=== PATIENT | male | born 1955 | race Caucasian/White ===

== ENCOUNTER 2019-05-04 10:43 | Inpatient (IN) | payer MEDICARE, OTHER ==
[~2019-05-04] VITALS: Ht 170.2 cm; Wt 67.8 kg
[2019-05-04 11:30] LABS: BASO % 1 % (0-3); EOS % 0 % (0-3); HEMATOCRIT 37.1 % (39.0-53.0); HEMOGLOBIN 12.3 g/dL (13.0-17.5); LYMPH # 1.2 x10^3/uL (1.0-4.8); LYMPH % 18 % (24-48); MEAN CORPUSCULAR HEMOGLOBIN 30 pg (25-35); MEAN CORPUSCULAR HGB CONC 33 g/dL (31-37); MEAN CORPUSCULAR VOLUME 91 fL (79-100); MONO # 0.6 x10^3/uL (0.0-1.1); MONO % 8 % (0-9); NEUT # 5.1 x10^3uL (1.8-7.7); NEUT % 73 % (31-73); PLATELET COUNT 203 x10^3/uL (140-400); RED BLOOD COUNT 4.08 x10^6/uL (4.30-5.70); RED CELL DISTRIBUTION WIDTH 15.9 % (11.5-14.5)
[2019-05-04] MEDS ORDERED: PALI234D IM (11:36)
[2019-05-04] MEDS ORDERED: UMEC62.5 IH (11:36)
[2019-05-04] MEDS ORDERED: PANT20TA58 PO (11:36)
[2019-05-04] MEDS ORDERED: ALBU2.5V8 IH (11:36)
[2019-05-04] MEDS ORDERED: SALM50DI IH (11:36)
[2019-05-04] MEDS ORDERED: LISI10TA2 PO (11:36)
[2019-05-04] MEDS ORDERED: NICO1PAT25 TD (11:36)
[2019-05-04] MEDS ORDERED: TAMS0.4C97 PO (11:36)
[2019-05-04] MEDS ORDERED: ASEN5TAB7 SL (11:36)
[2019-05-04] MEDS ORDERED: SERT50TA PO (11:36)
[2019-05-04] MEDS ORDERED: CLON0.5T PO (11:36)
[2019-05-04] MEDS ORDERED: TIZA4TAB PO (11:36)
[2019-05-04] MEDS ORDERED: FLUT9.9S NS (11:36)
[2019-05-04 11:43] LABS: ALBUMIN 2.9 g/dL (3.4-5.0); CALCIUM 8.9 mg/dL (8.5-10.1); GFR 75.5; MAGNESIUM 1.8 mg/dL (1.8-2.4); POTASSIUM 3.8 mmol/L (3.5-5.1); TOTAL BILIRUBIN 0.5 mg/dL (0.2-1.0); TOTAL PROTEIN 5.9 g/dL (6.4-8.2)
[2019-05-04 12:20] LABS: BACTERIA,URINE 0 /HPF (0-FEW); BILIRUBIN,URINE NEG (NEG); CLARITY,URINE CLOUDY; COLOR,URINE AMBER; GLUCOSE,URINE NEG (NEG); NITRITE,URINE NEG (NEG); RBC,URINE 0 /HPF (0-2); SQUAMOUS EPITHELIAL CELL,UR OCC /LPF; UROBILINOGEN,URINE 1 mg/dL (0.2 mg/dL); WBC,URINE RARE /HPF (0-4)
[2019-05-04] MEDS ORDERED: PRED-220 PO (12:24)
[2019-05-04] MEDS ORDERED: PRED20TA PO (12:24)
--- NOTE | 2019-05-04 12:26 | PHYS DOC ---
Past History Past Medical History: Bipolar, COPD, GERD, Hypertension, Hepatitis, Schizophrenia, Other Alcohol Use: None Drug Use: None Adult General Chief Complaint Chief Complaint: PSYCH EVALUATION HPI HPI 63-year-old male presents for medical clearance for psychiatric admission. The patient is feeling very depressed. He is made several statements about wanting to . He denies wanting to kill himself, just wouldn't mind if he naturally. The patient denies any medical complaints to me. Review of Systems Review of Systems Constitutional: Depressed. Denies fever or chills [] Eyes: Denies change in visual acuity, redness, or eye pain [] HENT: Denies nasal congestion or sore throat [] Respiratory: Denies cough or shortness of breath [] Cardiovascular: No additional information not addressed in HPI [] GI: Denies abdominal pain, nausea, vomiting, bloody stools or diarrhea [] : Denies dysuria or hematuria [] Musculoskeletal: Denies back pain or joint pain [] Integument: Denies rash or skin lesions [] Neurologic: Denies headache, focal weakness or sensory changes [] Endocrine: Denies polyuria or polydipsia [] All other systems were reviewed and found to be within normal limits, except as documented in this note. Allergies Allergies Allergies Coded Allergies Type Severity Reaction Last Updated Verified benztropine Allergy Unknown 05/04/19 Yes chlorpromazine Allergy Unknown 05/04/19 Yes cyclobenzaprine Allergy Unknown 05/04/19 Yes diphenhydramine Allergy Unknown 05/04/19 Yes hydroxyzine Allergy Unknown 05/04/19 Yes Physical Exam Physical Exam Constitutional: Well developed, well nourished, no acute distress, non-toxic appearance. [] HENT: Normocephalic, atraumatic, bilateral external ears normal, oropharynx moist, no oral exudates, nose normal. [] Eyes: PERRLA, EOMI, conjunctiva normal, no discharge. [] Neck: Normal range of motion, no tenderness, supple, no stridor. [] Cardiovascular:Heart rate regular rhythm, no murmur [] Lungs & Thorax: Bilateral breath sounds clear to auscultation [] Abdomen: Bowel sounds normal, soft, no tenderness, no masses, no pulsatile masses. [] Skin: Warm, dry, no erythema, no rash. [] Back: No tenderness, no CVA tenderness. [] Extremities: No tenderness, no cyanosis, no clubbing, ROM intact, no edema. [] Neurologic: Alert and oriented X 3, normal motor function, normal sensory function, no focal deficits noted. [] Psychologic: Affect flat, judgement normal, mood depressed. [] Current Patient Data Vital Signs Vital Signs Date Time Temp Pulse Resp B/P (MAP) Pulse Ox O2 Delivery O2 Flow Rate FiO2 05/04/19 11:30 75 16 102/62 (75) 99 Room Air 05/04/19 11:00 98.0 Lab Results Laboratory Tests Test 05/04/19 11:10 05/04/19 11:26 White Blood Count 7.0 x10^3/uL (4.0-11.0) Red Blood Count 4.08 x10^6/uL (4.30-5.70) L Hemoglobin 12.3 g/dL (13.0-17.5) L Hematocrit 37.1 % (39.0-53.0) L Mean Corpuscular Volume 91 fL (79-100) Mean Corpuscular Hemoglobin 30 pg (25-35) Mean Corpuscular Hemoglobin Concent 33 g/dL (31-37) Red Cell Distribution Width 15.9 % (11.5-14.5) H Platelet Count 203 x10^3/uL (140-400) Neutrophils (%) (Auto) 73 % (31-73) Lymphocytes (%) (Auto) 18 % (24-48) L Monocytes (%) (Auto) 8 % (0-9) Eosinophils (%) (Auto) 0 % (0-3) Basophils (%) (Auto) 1 % (0-3) Neutrophils # (Auto) 5.1 x10^3uL (1.8-7.7) Lymphocytes # (Auto) 1.2 x10^3/uL (1.0-4.8) Monocytes # (Auto) 0.6 x10^3/uL (0.0-1.1) Eosinophils # (Auto) 0.0 x10^3/uL (0.0-0.7) Basophils # (Auto) 0.0 x10^3/uL (0.0-0.2) Sodium Level 136 mmol/L (136-145) Potassium Level 3.8 mmol/L (3.5-5.1) Chloride Level 99 mmol/L (98-107) Carbon Dioxide Level 32 mmol/L (21-32) Anion Gap 5 (6-14) L Blood Urea Nitrogen 13 mg/dL (8-26) Creatinine 1.0 mg/dL (0.7-1.3) Estimated GFR (Cockcroft-Gault) 75.5 BUN/Creatinine Ratio 13 (6-20) Glucose Level 98 mg/dL (70-99) Calcium Level 8.9 mg/dL (8.5-10.1) Magnesium Level 1.8 mg/dL (1.8-2.4) Total Bilirubin 0.5 mg/dL (0.2-1.0) Aspartate Amino Transferase (AST) 54 U/L (15-37) H Alanine Aminotransferase (ALT) 123 U/L (16-63) H Alkaline Phosphatase 52 U/L (46-116) Total Protein 5.9 g/dL (6.4-8.2) L Albumin 2.9 g/dL (3.4-5.0) L Albumin/Globulin Ratio 1.0 (1.0-1.7) Urine Collection Type Unknown Urine Color Zofia Urine Clarity Cloudy Urine pH 6.5 Urine Specific [place] 1.015 Urine Protein Neg (NEG-TRACE) Urine Glucose (UA) Neg mg/dL (NEG) Urine Ketones (Stick) Neg mg/dL (NEG) Urine Blood Neg (NEG) Urine Nitrite Neg (NEG) Urine Bilirubin Neg (NEG) Urine Urobilinogen Dipstick 1 mg/dL (0.2 mg/dL) Urine Leukocyte Esterase Neg (NEG) Urine RBC 0 /HPF (0-2) Urine WBC Rare /HPF (0-4) Urine Squamous Epithelial Cells Occ /LPF Urine Bacteria 0 /HPF (0-FEW) Urine Mucus Mod /LPF EKG EKG Sinus rhythm, rate 78, normal axis, no ST elevations or depressions.[] Radiology/Procedures Radiology/Procedures [] Course & Med Decision Making Course & Med Decision Making Pertinent Labs and Imaging studies reviewed. (See chart for details) [] Dragon Disclaimer Dragon Disclaimer This electronic medical record was generated, in whole or in part, using a voice recognition dictation system. Departure Departure: Impression: Primary Impression: Medical clearance for psychiatric admission Disposition: ADMITTED INPATIENT Condition: STABLE Referrals: PRICE CATES MD (PCP) VIJAYA SANDERS DO May 04, 2019 12:26
[2019-05-04 13:10] VITALS: BP 127/77
--- NOTE | 2019-05-04 14:19 | EKG ---
[address] [address] Test Date: 2019-05-04 Test Time: 11:05:41 Pat Name: TRACY CEDILLO Department: Room: Gender: M [employer] Set Up Operator: MAGGIE : 1955 Requested By: VIJAYA SANDERS Order Number: [id number] Reading MD: Measurements Intervals [place] Rate: 78 P: 60 WY: 148 QRS: 51 QRSD: 74 T: 63 QT: 352 QTc: 405 Interpretive Statements SINUS RHYTHM OTHERWISE NORMAL ECG RI6.01 No previous ECG available for comparison
[2019-05-04] MEDS ORDERED: MAGNESIUM HYDROXIDE 2,400 MG/30 ML ORAL.SUSP. PO PRN (14:30)
[2019-05-04] MEDS ORDERED: MAG HYDROX/AL HYDROX/SIMETH 30 ML ORAL.SUSP PO PRN (14:30)
[2019-05-04] MEDS ORDERED: ALBUTEROL SULFATE 2.5 MG/3 ML NEBU. IH PRN (14:45)
[2019-05-04] MEDS ORDERED: NON FORMULARY ITEM (Asenapine Maleate (Saphris) 5 MG) SL PRN (15:00)
[2019-05-04] MEDS ORDERED: ALBUTEROL SULFATE 2.5 MG/3 ML NEBU. NEB PRN (15:15)
[2019-05-04] MEDS: IPRATRPIUM/ALBUTEROL 0.5/2.5MG 3 ML NEBU. NEB SCH ×2 (15:32→20:36)
[2019-05-04] MEDS: clonazePAM 0.5 MG TABLET PO PRN (16:27)
[2019-05-04] MEDS: tiZANidine 4 MG TABLET. PO PRN (20:19)
[2019-05-04] MEDS: ACETAMINOPHEN 325 MG TABLET PO PRN (20:19)
[2019-05-04] MEDS ORDERED: SALMETEROL XINAFOATE IH SCH (21:00)
--- NOTE | 2019-05-04 23:01 | PDOC ---
Exam Note: Elvis Note: Please also refer to the separate dictated note~for this date of service dictated separately. Discussed the patient with Nursing staff reviewed the chart.~Reviewed interim history and current functioning. Reviewed vital signs,~Labs/ Radiology~and current medications noted below. Continue current treatment with the changes noted in the dictated addendum note Assessment: Vital Signs/I&O: Vital Signs Date Time Temp Pulse Resp B/P (MAP) Pulse Ox O2 Delivery O2 Flow Rate FiO2 05/04/19 21:00 Room Air 05/04/19 20:37 99 05/04/19 13:10 98.2 71 16 127/77 (94) Labs: Laboratory Tests Test 05/04/19 11:10 05/04/19 11:26 White Blood Count 7.0 x10^3/uL (4.0-11.0) Red Blood Count 4.08 x10^6/uL (4.30-5.70) L Hemoglobin 12.3 g/dL (13.0-17.5) L Hematocrit 37.1 % (39.0-53.0) L Mean Corpuscular Volume 91 fL (79-100) Mean Corpuscular Hemoglobin 30 pg (25-35) Mean Corpuscular Hemoglobin Concent 33 g/dL (31-37) Red Cell Distribution Width 15.9 % (11.5-14.5) H Platelet Count 203 x10^3/uL (140-400) Neutrophils (%) (Auto) 73 % (31-73) Lymphocytes (%) (Auto) 18 % (24-48) L Monocytes (%) (Auto) 8 % (0-9) Eosinophils (%) (Auto) 0 % (0-3) Basophils (%) (Auto) 1 % (0-3) Neutrophils # (Auto) 5.1 x10^3uL (1.8-7.7) Lymphocytes # (Auto) 1.2 x10^3/uL (1.0-4.8) Monocytes # (Auto) 0.6 x10^3/uL (0.0-1.1) Eosinophils # (Auto) 0.0 x10^3/uL (0.0-0.7) Basophils # (Auto) 0.0 x10^3/uL (0.0-0.2) Sodium Level 136 mmol/L (136-145) Potassium Level 3.8 mmol/L (3.5-5.1) Chloride Level 99 mmol/L (98-107) Carbon Dioxide Level 32 mmol/L (21-32) Anion Gap 5 (6-14) L Blood Urea Nitrogen 13 mg/dL (8-26) Creatinine 1.0 mg/dL (0.7-1.3) Estimated GFR (Cockcroft-Gault) 75.5 BUN/Creatinine Ratio 13 (6-20) Glucose Level 98 mg/dL (70-99) Calcium Level 8.9 mg/dL (8.5-10.1) Magnesium Level 1.8 mg/dL (1.8-2.4) Total Bilirubin 0.5 mg/dL (0.2-1.0) Aspartate Amino Transferase (AST) 54 U/L (15-37) H Alanine Aminotransferase (ALT) 123 U/L (16-63) H Alkaline Phosphatase 52 U/L (46-116) Total Protein 5.9 g/dL (6.4-8.2) L Albumin 2.9 g/dL (3.4-5.0) L Albumin/Globulin Ratio 1.0 (1.0-1.7) Urine Collection Type Unknown Urine Color Zofia Urine Clarity Cloudy Urine pH 6.5 Urine Specific [place] 1.015 Urine Protein Neg (NEG-TRACE) Urine Glucose (UA) Neg mg/dL (NEG) Urine Ketones (Stick) Neg mg/dL (NEG) Urine Blood Neg (NEG) Urine Nitrite Neg (NEG) Urine Bilirubin Neg (NEG) Urine Urobilinogen Dipstick 1 mg/dL (0.2 mg/dL) Urine Leukocyte Esterase Neg (NEG) Urine RBC 0 /HPF (0-2) Urine WBC Rare /HPF (0-4) Urine Squamous Epithelial Cells Occ /LPF Urine Bacteria 0 /HPF (0-FEW) Urine Mucus Mod /LPF Current Medications: Meds: Current Medications Medications (Trade) Dose Ordered Sig/Danielle Route PRN Reason Start Time Stop Time Status Last Admin Dose Admin Acetaminophen (Tylenol) 650 mg PRN Q6HRS PRN PO PAIN / TEMP 05/04/19 14:30 05/04/19 20:19 Tizanidine HCl (Zanaflex) 2 mg PRN Q8HRS PRN PO MUSCLE SPASMS 05/04/19 15:15 05/04/19 20:19 Clonazepam (KlonoPIN) 0.5 mg PRN BID PRN PO ANXIETY / AGITATION 05/04/19 15:00 05/04/19 16:27 Albuterol/ Ipratropium (Duoneb) 3 ml RTQID NEB 05/04/19 16:00 05/04/19 20:36 Olanzapine (ZyPREXA ZYDIS) 2.5 mg PRN Q2HR PRN PO ANXIETY / AGITATION / PSYCHOSI 05/04/19 18:15 05/04/19 22:07 I have reviewed the current psychotropics carefully including drug interactions. Risk benefit ratio favors no change other than as noted in my dictated progress note. Diagnosis: Problems: (1) Anxiety disorder (2) Bipolar affective, mixed, sev w/ psych (3) Schizoaffective disorder, bipolar type (4) Impulse control disorder (5) Methamphetamine abuse ROSSI GONZALEZ MD May 04, 2019 23:01
--- NOTE | 2019-05-05 00:39 | CONS ---
DATE OF CONSULTATION: 05/04/2019 REASON FOR CONSULTATION: Medical management. HISTORY OF PRESENT ILLNESS: The patient is a 63-year-old male patient, a resident at [facility] in [place], who was seen in the Emergency Room for medical clearance to be admitted to [facility] on account of feeling very depressed. He has made several statements about wanting to . He denied wanting to kill himself, but would not mind if he dies naturally. He denied any other complaints to the Emergency Room physician; however, when I saw him, he states that he is weak, has decreased energy, decreased concentration tearful and apparently, he is complaining of fainting when he walks, although he denied any fall. He was admitted to [facility] for inpatient psychiatric stabilization. PAST PSYCHIATRIC HISTORY: Significant for schizophrenia and bipolar disorder. PAST MEDICAL HISTORY: Significant for chronic obstructive pulmonary disease, gastroesophageal reflux disease, hypertension, chronic hepatitis C, and apparently has also chronic liver disease. He is hard of hearing, history of substance abuse, bronchial asthma. PAST SURGICAL HISTORY: Significant for carpal tunnel release in the left side and back surgery. FAMILY HISTORY: Significant that his brother has schizophrenia. His father at the age of 48 because of motor vehicle accident and mother in her 70s because of myocardial infarction. SOCIAL HISTORY: He is , has a daughter and a son. He smokes a pack a day and does not drink alcohol or use any drugs. The hospital states that he has a history of substance abuse, although without specification. He apparently has not used smokeless tobacco and he does not drink alcohol. ALLERGIES: HE IS ALLERGIC TO BENZTROPINE, CHLORPROMAZINE, CYCLOBENZAPRINE, DIPHENHYDRAMINE, AND HYDROXYZINE. MEDICATIONS: He is currently on the following medications: He is on Incruse Ellipta 1 puff once a day for COPD, albuterol sulfate 2 puffs every 2 hours as needed and Serevent Diskus 1 puff twice a day, Flomax 0.4 mg daily, tizanidine 2 mg every 8 hours, nicotine for Nicoderm patch 14 mg 1 patch daily, lisinopril 10 mg once a day, clonazepam 0.5 mg twice a day, sertraline 50 mg daily. He is on Saphris 5 mg sublingually daily p.r.n. for hallucination and he is on paliperidone, palmitate for Invega Sustenna 234 mg in 1.5 mL intramuscular once a month. He is on Flonase 2 sprays to each nostril daily, Protonix 20 mg daily, and prednisone 30 mg daily in a tapering fashion. REVIEW OF SYSTEMS: The patient denied any blurring of vision, cataract, glaucoma or macular degeneration. Denied any earache, tinnitus or sensorineural deafness. Denied any nosebleeds, stuffy nose or postnasal drip. Denied any sore throat, sore tongue, toothache, hoarseness of voice or difficulty swallowing. Denied any nausea, vomiting, diarrhea or constipation. Denied any hematemesis, melena or hematochezia. Denied any dysuria, frequency or hematuria. PHYSICAL EXAMINATION: GENERAL: When I saw him this afternoon, he was resting flat, comfortably in bed, no apparent distress. He was slightly pale, but no jaundice or cyanosis. No lymphadenopathy, no thyromegaly. No jugular venous distention. No limb edema. VITAL SIGNS: His heart rate was 71, blood pressure 127/77, temperature was 98.2, respiratory rate was 16, and oxygen saturation was 99%. HEAD, EYES, NOSE AND THROAT: Showed normocephalic, atraumatic. NECK: Supple. HEART: Showed normal first and second heart sounds. No gallop or murmur. CHEST: Clear to auscultation. No crepitation or rhonchi. ABDOMEN: Distended, soft, nontender. No guarding or rigidity. No organomegaly. All hernial orifices intact. Bowel sounds normal. NEUROLOGIC: He was awake, alert, responding appropriately. All cranial nerves intact. EXTREMITIES: He moves extremities without difficulty. He is able to ambulate without assistance or assistive devices, although he felt dizzy and unsteady. LABORATORY DATA: His lab work this morning showed a serum sodium 136, potassium 3.8, chloride 99, bicarbonate 32, anion gap of 5, BUN 13, creatinine 1, estimated GFR was 75 mL per minute. His glucose was 98, calcium was 8.9, magnesium was 1.8. Total bilirubin and alkaline phosphatase normal. AST, ALT are elevated. Total protein was 5.9, albumin was 2.9. His white cell count was 7000, hemoglobin 12, hematocrit 37, MCV 91, and platelet count of 203,000 with normal manual differential. His urinalysis showed the urine was debby, cloudy with a pH of 6.5, specific gravity of 1.015. The urine was negative for protein, glucose, ketones, blood, nitrite and bilirubin as well as leukocyte esterase. There are no rbc's, no wbc's, and no bacteria. IMPRESSION: In summary, this is a 63-year-old male patient who basically came with a complaint of feeling very depressed. He has made several statements about wanting to . He denied wanting to kill himself, denied any plan to do that. However, he just would not mind if he naturally. The patient has multiple medical problems including chronic obstructive pulmonary disease, hypertension, chronic hepatitis C, low back pain, gastroesophageal reflux disease, and history of substance abuse. He is also known to have bipolar disorder and schizoaffective disorder. He was admitted to this unit for inpatient psychiatric stabilization. Medically, he seems to be all in all stable. His vital signs are normal. All his lab works are within acceptable range. His urinalysis was essentially unremarkable and the only abnormalities is his liver enzymes are elevated, probably secondary to his chronic hepatitis C, has also moderate protein-calorie malnutrition with albumin is only 2.9. In fact, his white cell count, hemoglobin, hematocrit, and platelets are all within acceptable range. PLAN: My plan is to check his PT, INR, and ammonia level and check also his hepatitis C serology. I will also consult Dr. Lainez to assist with his weakness, follow all his lab work that are still pending, and make necessary recommendation. Thank you, Dr. Dykes, for allowing me to participate in the care of this patient. GUDELIA BEATTY MD DR: YESSICA/lopez JOB#: [id number] / [id number]
[2019-05-05] MEDS: clonazePAM 0.5 MG TABLET PO PRN ×2 (00:41→10:05)
[2019-05-05] MEDS: IPRATRPIUM/ALBUTEROL 0.5/2.5MG 3 ML NEBU. NEB SCH ×4 (05:17→20:00)
[2019-05-05 05:56] VITALS: BP 148/84
[2019-05-05] MEDS ORDERED: NICOTINE 14MG PATCH. TD SCH (09:00)
[2019-05-05] MEDS ORDERED: predniSONE 10 MG TABLET PO SCH (09:00)
[2019-05-05] MEDS ORDERED: NON FORMULARY ITEM (Umeclidinium Bromide (Incruse Ellipta) 1 PUFF) IH SCH (09:00)
[2019-05-05] MEDS: FLUTICASONE 50MCG/NASAL SPRAY 16GM BOTTLE. NS SCH ×2 (09:00→09:49)
[2019-05-05] MEDS: TAMSULOSIN 0.4 MG CAP.ER.24H. PO SCH (09:49)
[2019-05-05] MEDS: LISINOPRIL 10 MG TABLET PO SCH (09:50)
[2019-05-05] MEDS: PANTOPRAZOLE 40 MG TABLET. PO SCH (09:50)
[2019-05-05] MEDS: SERTRALINE 50 MG TABLET. PO SCH (09:50)
[2019-05-05] MEDS: NICOTINE 14MG PATCH. TD SCH (09:51)
--- NOTE | 2019-05-05 10:58 | RAD ---
Exam performed: CT scan of the head without contrast. Date of Service: 05/05/2019. Comparison: None available. Clinical History: Pain, . Technique: Helical acquisitions are obtained from the foramen magnum to the vertex without intravenous administration of contrast. Findings: There is prominence of cortical sulci and ventricular system compatible with age related atrophy. There are areas of low-attenuation in both periventricular deep white matter suggesting small vessel ischemic changes. Normal thomas-white differentiation is maintained. There is no extra axial fluid collection, intraparenchymal hemorrhage or mass lesion. The visualized portions of the orbits and the mastoid air cells appear clear. Mucoperiosteal thickening involving both maxillary sinuses suggesting chronic sinus disease. The calvarium is intact. Impression: 1. Age-appropriate atrophy without any acute intracranial process. PQRS Compliance Statement: One or more of the following individualized dose reduction techniques were utilized for this examination: 1. Automated exposure control 2. Adjustment of the mA and/or kV according to patient size 3. Use of iterative reconstruction technique Electronically signed by: Leigh Koenig MD (05/05/2019 10:55 AM) [facility]
[2019-05-05 11:31] LABS: THYROID STIM HORMONE (TSH) 1.025 uIU/mL (0.358-3.740)
[2019-05-05] MEDS: tiZANidine 4 MG TABLET. PO PRN ×2 (12:46→21:37)
[2019-05-05 15:55] VITALS: BP 117/79
[2019-05-05] MEDS: traZODone 50 MG TABLET. PO PRN (20:16)
[2019-05-05] MEDS: LITHIUM CARBONATE 300 MG TABLET PO SCH (20:16)
[2019-05-05] MEDS: risperiDONE 1 MG TABLET. PO SCH (20:16)
[2019-05-05 21:06] LABS: THYROXINE 5.6 ug/dL (4.5-12.0)
--- NOTE | 2019-05-05 21:08 | HP ---
ADMIT DATE: 05/04/2019 PSYCHIATRIC PROGRESS NOTE This is late entry 05/04/2019. Covers elements not covered in my initial note. SUBJECTIVE: I met with the patient evening of 05/04/2019. Discussed with nursing staff, reviewed the chart. Previously had discussed with Leilani Rdz, marketing outreach coordinator to gather referral information from [facility] by Dr. Morgan Scott. IDENTIFYING DATA: The patient is a 63-year-old male referred to us by Dr. Scott from the above nursing facility after he was voicing suicidal ideation. He appeared depressed, psychotic, decreased energy, expresses he wanted to , states he could not concentrate, was tearful, having intermittent questionable hallucinations. This is within the context of his diagnosis of schizoaffective disorder, bipolar type and a past history of polysubstance abuse and the patient states this was mainly methamphetamine abuse. We will have to inquire details later. CHIEF COMPLAINT: "I am in pain all over. I needs more Klonopin. Nothing works." HISTORY OF PRESENT ILLNESS: The patient has a history of schizoaffective disorder, bipolar type. Additionally, he has had a polysubstance abuse as noted, but denies any alcohol usage. More recently, he has appeared quite psychotic, depressed, paranoid, feeling hopeless, helpless, worthless with sleep and appetite changes and being tearful. He also has a history of significant mood swings. PAST MEDICAL HISTORY: Positive for hepatitis C, positive COPD, hypertension, low back pain, GERD, status post sepsis. Walks independently with walker. DIET: Regular. ALLERGIES: BENZTROPINE, CYCLOBENZAPRINE, HYDROXYZINE, CHLORPROMAZINE AND BENADRYL. CURRENT PSYCHOTROPICS: Invega IM 234 mg q. 21 days, Klonopin 0.5 mg b.i.d. p.r.n., Saphris 5 mg daily, Zoloft 50 mg a day. Saphris is unavailable at this hospital and we will change it to Risperdal 1 mg at bedtime. FAMILY HISTORY: Noncontributory. SUBSTANCE ABUSE HISTORY: Noted above. No physical, sexual or elder abuse history is noted. He is not known to be a perpetrator. MENTAL STATUS EXAMINATION: The patient was seen individually evening of 05/04/2019 in his room at length. He is anxious, restless, paranoid, somewhat withdrawn, lying in his bed. Speech has some latency, coherent. Abstraction fair, computation impaired, language function intact. He is quite somatically preoccupied, wanting opiates and benzodiazepines including increase Klonopin. He denies active suicidal ideation. Mood is depressed, anxious, withdrawn. Attention span short. Language function intact. ASSETS: Supportive living at the above facility. IMPRESSION: Schizoaffective disorder, bipolar type, mixed with psychotic features; anxiety disorder, unspecified; impulse control disorder, unspecified; history of polysubstance abuse, mostly methamphetamine, hepatitis C positive. Rest diagnosis as above. PLAN: Admit to geropsychiatry unit at [facility]. I will see the patient daily individually from a psychiatric standpoint. Medical followup with Dr. Reyes. Saphris will be changed to Risperdal 1 mg at bedtime. We are unable to use Depakote given his hepatitis C status positive and hepatotoxicity potential from the Depakote. We will start lithium instead at 300 mg at bedtime. Check CBC, CMP, lithium level in 3 days. He just slept 3-1/2 hours the night of 05/04/2019 and 05/05/2019 and starting on 05/05/2019, we will start him on trazodone 50 mg at bedtime p.r.n., may repeat x 1 for insomnia. We will get past psychiatric records. Make further changes in his psychotropics as clinically indicated. ROSSI GONZALEZ MD DR: TYRESE/lopez JOB#: [id number] / [id number]
--- NOTE | 2019-05-05 22:42 | PDOC ---
Exam Note: Elvis Note: Please also refer to the separate dictated note~for this date of service dictated separately.~Patient seen individually. Discussed the patient with Nursing staff reviewed the chart.~Reviewed interim history and current functioning. Reviewed vital signs,~Labs/ Radiology~and current medications noted below. Continue current treatment with the changes noted in the dictated addendum note Assessment: Vital Signs/I&O: Vital Signs Date Time Temp Pulse Resp B/P (MAP) Pulse Ox O2 Delivery O2 Flow Rate FiO2 05/05/19 20:01 98 Room Air 05/05/19 15:55 97.5 98 20 117/79 (92) I & O 05/04/19 05/04/19 05/05/19 15:00 23:00 07:00 Intake Total 360 ml Balance 360 ml Labs: Laboratory Tests Test 05/05/19 07:40 Prothrombin Time 10.1 SEC (9.4-11.4) Prothrombin Time INR 1.0 (0.9-1.1) Ammonia 19 mcmol/L (11-34) Triglycerides Level 45 mg/dL (0-150) Cholesterol Level 198 mg/dL (0-200) LDL Cholesterol, Calculated 80 mg/dL (0-100) VLDL Cholesterol, Calculated 9 mg/dL (0-40) Non-HDL Cholesterol Calculated 89 mg/dL (0-129) HDL Cholesterol 109 mg/dL (40-60) H Cholesterol/HDL Ratio 1.0 Thyroid Stimulating Hormone (TSH) 1.025 uIU/mL (0.358-3.740) Thyroxine (T4) 5.6 ug/dL (4.5-12.0) Total Triiodothyronine (TT3) 119 ng/dL (71-180) Current Medications: Meds: Current Medications Medications (Trade) Dose Ordered Sig/Danielle Route PRN Reason Start Time Stop Time Status Last Admin Dose Admin Nicotine (Nicoderm Cq 14mg) 1 patch DAILY TD 05/05/19 09:00 05/05/19 09:51 Lisinopril (Prinivil) 10 mg DAILY PO 05/05/19 09:00 05/05/19 09:50 Prednisone (Prednisone) 30 mg DAILY PO 05/05/19 09:00 05/05/19 09:30 DC 05/05/19 09:49 Tamsulosin HCl (Flomax) 0.4 mg DAILY PO 05/05/19 09:00 05/05/19 09:49 Pantoprazole Sodium (Protonix) 40 mg DAILY PO 05/05/19 09:00 05/05/19 09:50 Sertraline HCl (Zoloft) 50 mg DAILY PO 05/05/19 09:00 05/05/19 09:50 [place] Carbonate 300 mg HS PO 05/05/19 21:00 05/05/19 20:16 Risperidone (RisperDAL) 1 mg HS PO 05/05/19 21:00 05/05/19 20:16 Trazodone HCl (Desyrel) 50 mg QHS PRN PO INSOMNIA, MAY REPEAT X1 05/05/19 20:00 05/05/19 20:16 I have reviewed the current psychotropics carefully including drug interactions. Risk benefit ratio favors no change other than as noted in my dictated progress note. Diagnosis: Problems: (1) Anxiety disorder (2) Bipolar affective, mixed, sev w/ psych (3) Schizoaffective disorder, bipolar type (4) Impulse control disorder (5) Methamphetamine abuse ROSSI GONZALEZ MD May 05, 2019 22:42
[2019-05-06 05:06] LABS: HEMOGLOBIN A1C 5.6 % (4.8-5.6)
[2019-05-06] MEDS: IPRATRPIUM/ALBUTEROL 0.5/2.5MG 3 ML NEBU. NEB SCH ×4 (05:14→20:19)
[2019-05-06 05:52] VITALS: BP 114/74
[2019-05-06] MEDS: TAMSULOSIN 0.4 MG CAP.ER.24H. PO SCH (07:41)
[2019-05-06] MEDS: PANTOPRAZOLE 40 MG TABLET. PO SCH (07:41)
[2019-05-06] MEDS: NICOTINE 14MG PATCH. TD SCH (07:42)
[2019-05-06] MEDS: FLUTICASONE 50MCG/NASAL SPRAY 16GM BOTTLE. NS SCH ×2 (07:42→09:00)
[2019-05-06] MEDS: SERTRALINE 50 MG TABLET. PO SCH (07:42)
[2019-05-06] MEDS: LISINOPRIL 10 MG TABLET PO SCH (07:42)
[2019-05-06] MEDS: predniSONE 20 MG TABLET PO SCH (07:48)
[2019-05-06 16:16] VITALS: BP 104/68
[2019-05-06] MEDS: CHOLECALCIFEROL (VITAMIN D3) 50,000 UNIT CAPSULE PO SCH (16:50)
[2019-05-06] MEDS: traZODone 50 MG TABLET. PO PRN ×2 (19:17→20:36)
[2019-05-06] MEDS: risperiDONE 1 MG TABLET. PO SCH (19:17)
[2019-05-06] MEDS: LITHIUM CARBONATE 300 MG TABLET PO SCH (19:17)
[2019-05-06] MEDS: tiZANidine 4 MG TABLET. PO PRN (19:39)
[2019-05-06] MEDS: ACETAMINOPHEN 325 MG TABLET PO PRN (20:36)
--- NOTE | 2019-05-06 22:11 | PDOC ---
Exam Note: Elvis Note: Please also refer to the separate dictated note~for this date of service dictated separately.~Patient seen individually. Discussed the patient with Nursing staff reviewed the chart.~Reviewed interim history and current functioning. Reviewed vital signs,~Labs/ Radiology~and current medications noted below. Continue current treatment with the changes noted in the dictated addendum note Assessment: Vital Signs/I&O: Vital Signs Date Time Temp Pulse Resp B/P (MAP) Pulse Ox O2 Delivery O2 Flow Rate FiO2 05/06/19 20:21 99 Room Air 05/06/19 16:16 97.4 89 17 104/68 (80) I & O 05/05/19 05/05/19 05/06/19 14:59 22:59 06:59 Intake Total 1200 ml 480 ml 120 ml Balance 1200 ml 480 ml 120 ml Current Medications: Meds: Current Medications Medications (Trade) Dose Ordered Sig/Danielle Route PRN Reason Start Time Stop Time Status Last Admin Dose Admin Prednisone (Prednisone) 20 mg DAILY PO 05/06/19 09:00 05/08/19 09:01 05/06/19 07:48 Vitamin D (Vitamin D3) 50,000 unit WEEKLY PO 05/06/19 15:30 05/06/19 16:50 I have reviewed the current psychotropics carefully including drug interactions. Risk benefit ratio favors no change other than as noted in my dictated progress note. Diagnosis: Problems: (1) Anxiety disorder (2) Bipolar affective, mixed, sev w/ psych (3) Schizoaffective disorder, bipolar type (4) Impulse control disorder (5) Methamphetamine abuse ROSSI GONZALEZ MD May 06, 2019 22:11
--- NOTE | 2019-05-07 00:06 | PN ---
DATE: 05/05/2019 PSYCHIATRIC PROGRESS NOTE This late entry of 05/05/2019 covers elements not covered in my initial note. SUBJECTIVE: I met with the patient in the evening of 05/05/2019. Per nursing report, the patient has been rude, extremely anxious, demanding more Klonopin and wanting narcotics. Complains of ankle pain, with marked mood lability. Dr. Lainez did see him for questionable restless leg and nothing neurologically to account for this. Reviewed his past history of schizoaffective disorder, bipolar type at length and he is currently on no mood stabilizers. REVIEW OF SYSTEMS: Positive for the pain as noted, anxiety, restless leg movements. No CV, , pulmonary, eye system symptoms on review. MENTAL STATUS EXAM: Oriented reasonably. Speech is coherent, rapid at times, labile, tearful as I met with him at length in his room. Abstraction fair, computation impaired, language function intact, attention span short. Mood and affect remains labile, slept 3-1/2 hours previous night. LABORATORY DATA: Reviewed. IMPRESSION: Schizoaffective disorder, bipolar type, mixed with psychotic features; anxiety disorder, unspecified; impulse control disorder, unspecified; past history of polysubstance preferentially methamphetamine abuse, opioid and benzodiazepine abuse. PLAN: We will go ahead and start lithium carbonate 300 mg at bedtime. Check CBC, CMP, lithium level in 3 days. We will avoid Depakote since he has hepatitis C, given the potential hepatotoxicity from the Depakote. We will also start Risperdal 1 mg at bedtime, trazodone 50 mg at bedtime p.r.n., may repeat x 1 for insomnia. Rest unchanged for now. MAN Marta GONZALEZ MD DR: TYRESE/lopez JOB#: [id number] / [id number]
--- NOTE | 2019-05-07 02:20 | CONS ---
DATE OF CONSULTATION: 05/04/2019 REFERRING PHYSICIAN: Dr. Dykes. REASON FOR CONSULTATION: Rule out movement disorders. HISTORY OF PRESENT ILLNESS: This is a 63-year-old right-handed male who was admitted through Emergency Room after he presented with chief complaints of severe depressions and multiple statements of wishing to be . The patient denies suicidal ideations or having any history of suicidal attempt. Neuro consult was requested because the patient was found to have intermittent abnormal movements of the arms and legs. He denies any falls or recent head injuries. The patient denies any new medical or neurological complaints. In the Emergency Room, the patient denies any symptoms. PAST MEDICAL HISTORY: Significant for polysubstance abuse. He has been using marijuana, methamphetamine. In the past he has history of cocaine use. Other medical problems include chronic obstructive pulmonary disease, GERD, hypertension, chronic hepatitis C. PAST SURGICAL HISTORY: Positive for left carpal tunnel release and back surgeries. SOCIAL HISTORY: The patient is . He is a resident of [facility] in [place]. He smokes 1 pack of cigarette daily. He denies alcohol drinking. Last substance abuse was methamphetamine a month ago according to the patient. FAMILY HISTORY: Father at the age of 48 due to motor vehicle accident. Mother in her 70s due to coronary artery disease. His brother has schizophrenia. CURRENT HOME MEDICATIONS: Include Ellipta inhaler, albuterol inhaler, tizanidine, clonazepam, sertraline, Saphris for hallucinations, paliperidone palmitate for Invega Sustenna intramuscular injection once a month and Flonase nasal spray, Protonix and tapering dose of prednisone. ALLERGIES: BENZTROPINE, CHLORPROMAZINE, CYCLOBENZAPRINE, HYDROXYZINE AND DIPHENHYDRAMINE. REVIEW OF SYSTEMS: A 10-point review of system was performed as mentioned above in history of present illness, otherwise unremarkable. PHYSICAL EXAMINATION: GENERAL: Well-developed, well-nourished male, not in acute distress. He weighs 67.6 kilos. VITAL SIGNS: Blood pressure 170/79, respiratory rate 20, pulse is 98, oxygen saturation 97% on room air. HEENT: Normocephalic, atraumatic, otherwise unremarkable. NECK: Supple. Negative for carotid bruit, lymphadenopathy or thyromegaly. LUNGS: Clear to A and P. CARDIOVASCULAR: Regular rate and rhythm, normal S1, S2. There is no S3, S4 or murmur. ABDOMEN: Soft. Bowel sounds positive. EXTREMITIES: Negative for cyanosis, clubbing, pitting edema. MENTAL STATUS: The patient is alert and oriented x 3. Speech is fluent. There is no language dysfunction. The patient recalls 2/3 immediately and after 1 and 3 minutes. Judgment, and abstract thinking are fair. The patient denies hallucination or delusion. CRANIAL NERVES: Visual romero are full. The pupils are reactive to light and accommodation. The extraocular movements are intact. There is no nystagmus. There is no facial motor or sensory deficit. Hearing is intact bilaterally. The palate is elevated symmetrically. Sternocleidomastoid muscles are powerful bilaterally. The patient shrugs his shoulders symmetrically and protrudes his tongue in the midline without fasciculation or atrophy. MOTOR: No focal muscle bulk was seen. The tone is normal. The strength is 5/5 throughout. The patient does not have any abnormal movements at this time. SENSORY: Sensory examination revealed normal pinprick, light touch, vibratory and position senses. Deep tendon reflexes were symmetric and hypoactive with absent Achilles responses. Gait and coordination were normal. DIAGNOSTIC DATA: Nonenhanced head CT scan revealed generalized atrophy, age related. Otherwise, no acute intracranial process. LABORATORY DATA: CBC revealed white blood cells of 7000, hemoglobin 12.3, hematocrit 37.1, platelet count 203,000. Chemistry revealed sodium of 136, potassium 3.8, chloride 99, CO2 of 32, BUN 13, creatinine 1, glucose is 98, calcium 8.9. Liver enzymes are elevated with ammonia level of 19 and lipid profile revealed no evidence of hyperlipidemia along with normal thyroid profile. Urinalysis is negative for urinary tract infections. Urine drug screen is none done at this time. IMPRESSION: 1. Normal neurological examination. No evidence of movement disorder at this time. 2. Multiple medical problems include chronic obstructive pulmonary disease, gastroesophageal reflux disease, hypertension, hepatitis C. 3. Multiple psychiatric problems include schizoaffective disorders, anxiety disorders. 4. Longstanding history of polysubstance abuse. RECOMMENDATIONS: We will continue with current medical and psychiatric care. M Patrizia CORDOVA MD DR: LEONARD/lopez JOB#: [id number] / [id number]
[2019-05-07] MEDS: ACETAMINOPHEN 325 MG TABLET PO PRN ×2 (02:26→18:51)
[2019-05-07] MEDS: IPRATRPIUM/ALBUTEROL 0.5/2.5MG 3 ML NEBU. NEB SCH ×4 (05:37→19:34)
[2019-05-07 06:06] VITALS: BP 134/75
[2019-05-07] MEDS: TAMSULOSIN 0.4 MG CAP.ER.24H. PO SCH (08:00)
[2019-05-07] MEDS: NICOTINE 14MG PATCH. TD SCH (08:00)
[2019-05-07] MEDS: PANTOPRAZOLE 40 MG TABLET. PO SCH (08:00)
[2019-05-07] MEDS: FLUTICASONE 50MCG/NASAL SPRAY 16GM BOTTLE. NS SCH (08:01)
[2019-05-07] MEDS: LISINOPRIL 10 MG TABLET PO SCH (08:01)
[2019-05-07] MEDS: predniSONE 20 MG TABLET PO SCH (08:01)
[2019-05-07] MEDS: SERTRALINE 50 MG TABLET. PO SCH (08:01)
[2019-05-07 15:54] VITALS: BP 111/69
[2019-05-07] MEDS: risperiDONE 1 MG TABLET. PO SCH (19:08)
[2019-05-07] MEDS: traZODone 50 MG TABLET. PO PRN ×2 (19:08→20:22)
[2019-05-07] MEDS: LITHIUM CARBONATE 300 MG TABLET PO SCH (19:08)
[2019-05-07] MEDS: tiZANidine 4 MG TABLET. PO PRN (20:22)
[2019-05-07] MEDS: clonazePAM 0.5 MG TABLET PO PRN (22:22)
--- NOTE | 2019-05-07 22:52 | PDOC ---
Exam Note: Elvis Note: Please also refer to the separate dictated note~for this date of service dictated separately.~Patient seen individually. Discussed the patient with Nursing staff reviewed the chart.~Reviewed interim history and current functioning. Reviewed vital signs,~Labs/ Radiology~and current medications noted below. Continue current treatment with the changes noted in the dictated addendum note Assessment: Vital Signs/I&O: Vital Signs Date Time Temp Pulse Resp B/P (MAP) Pulse Ox O2 Delivery O2 Flow Rate FiO2 05/07/19 19:35 99 Room Air 05/07/19 15:54 97.3 83 20 111/69 (83) I & O 05/06/19 05/06/19 05/07/19 15:00 23:00 07:00 Intake Total 840 ml 480 ml Balance 840 ml 480 ml Current Medications: I have reviewed the current psychotropics carefully including drug interactions. Risk benefit ratio favors no change other than as noted in my dictated progress note. Diagnosis: Problems: (1) Anxiety disorder (2) Bipolar affective, mixed, sev w/ psych (3) Schizoaffective disorder, bipolar type (4) Impulse control disorder (5) Methamphetamine abuse ROSSI GONZALEZ MD May 07, 2019 22:52
[2019-05-08] MEDS: ACETAMINOPHEN 325 MG TABLET PO PRN ×3 (01:40→19:36)
[2019-05-08 05:43] VITALS: BP 109/69
[2019-05-08] MEDS: IPRATRPIUM/ALBUTEROL 0.5/2.5MG 3 ML NEBU. NEB SCH ×4 (05:50→20:35)
[2019-05-08] MEDS: METHYL SALICYLATE/MENTHOL TOPICAL OINTMENT 29GM TUBE. TP PRN (06:28)
[2019-05-08] MEDS: tiZANidine 4 MG TABLET. PO PRN ×2 (06:28→17:43)
[2019-05-08 07:56] LABS: BASO # 0.1 x10^3/uL (0.0-0.2); BASO % 1 % (0-3); EOS % 0 % (0-3); HEMATOCRIT 36.9 % (39.0-53.0); HEMOGLOBIN 12.1 g/dL (13.0-17.5); LYMPH # 2.7 x10^3/uL (1.0-4.8); LYMPH % 25 % (24-48); MEAN CORPUSCULAR HEMOGLOBIN 30 pg (25-35); MEAN CORPUSCULAR HGB CONC 33 g/dL (31-37); MEAN CORPUSCULAR VOLUME 93 fL (79-100); MONO # 0.8 x10^3/uL (0.0-1.1); MONO % 7 % (0-9); NEUT # 7.3 x10^3uL (1.8-7.7); NEUT % 67 % (31-73); PLATELET COUNT 211 x10^3/uL (140-400); RED BLOOD COUNT 3.97 x10^6/uL (4.30-5.70); RED CELL DISTRIBUTION WIDTH 15.8 % (11.5-14.5); WHITE BLOOD COUNT 10.9 x10^3/uL (4.0-11.0)
[2019-05-08 08:10] LABS: ALBUMIN 3.1 g/dL (3.4-5.0); CALCIUM 9.2 mg/dL (8.5-10.1); CREATININE 0.9 mg/dL (0.7-1.3); GFR 85.2; POTASSIUM 4.3 mmol/L (3.5-5.1); TOTAL BILIRUBIN 0.4 mg/dL (0.2-1.0); TOTAL PROTEIN 6.2 g/dL (6.4-8.2)
[2019-05-08] MEDS: LISINOPRIL 10 MG TABLET PO SCH (08:13)
[2019-05-08] MEDS: predniSONE 20 MG TABLET PO SCH (08:13)
[2019-05-08] MEDS: TAMSULOSIN 0.4 MG CAP.ER.24H. PO SCH (08:13)
[2019-05-08] MEDS: PANTOPRAZOLE 40 MG TABLET. PO SCH (08:13)
[2019-05-08] MEDS: SERTRALINE 50 MG TABLET. PO SCH (08:13)
[2019-05-08] MEDS: NICOTINE 14MG PATCH. TD SCH (08:14)
[2019-05-08] MEDS: FLUTICASONE 50MCG/NASAL SPRAY 16GM BOTTLE. NS SCH (08:15)
[2019-05-08 12:08] LABS: HCV ULTRA QUANT PCR 7370000 IU/mL (.)
[2019-05-08] MEDS: clonazePAM 0.5 MG TABLET PO PRN ×2 (12:43→19:36)
[2019-05-08 16:17] VITALS: BP 105/69
[2019-05-08] MEDS: risperiDONE 1 MG TABLET. PO SCH (19:34)
[2019-05-08] MEDS: rOPINIRole 0.25 MG TABLET. PO SCH (19:34)
[2019-05-08] MEDS: LITHIUM CARBONATE 300 MG TABLET PO SCH (19:35)
[2019-05-08] MEDS: traZODone 50 MG TABLET. PO PRN (19:36)
--- NOTE | 2019-05-08 22:34 | PDOC ---
Exam Note: Elvis Note: Please also refer to the separate dictated note~for this date of service dictated separately.~Patient seen individually. Discussed the patient with Nursing staff reviewed the chart.~Reviewed interim history and current functioning. Reviewed vital signs,~Labs/ Radiology~and current medications noted below. Continue current treatment with the changes noted in the dictated addendum note Assessment: Vital Signs/I&O: Vital Signs Date Time Temp Pulse Resp B/P (MAP) Pulse Ox O2 Delivery O2 Flow Rate FiO2 05/08/19 20:35 97 Room Air 05/08/19 16:17 97.4 90 20 105/69 (81) I & O 05/07/19 05/07/19 05/08/19 14:59 22:59 06:59 Intake Total 720 ml 360 ml 240 ml Balance 720 ml 360 ml 240 ml Labs: Laboratory Tests Test 05/08/19 07:29 White Blood Count 10.9 x10^3/uL (4.0-11.0) Red Blood Count 3.97 x10^6/uL (4.30-5.70) L Hemoglobin 12.1 g/dL (13.0-17.5) L Hematocrit 36.9 % (39.0-53.0) L Mean Corpuscular Volume 93 fL (79-100) Mean Corpuscular Hemoglobin 30 pg (25-35) Mean Corpuscular Hemoglobin Concent 33 g/dL (31-37) Red Cell Distribution Width 15.8 % (11.5-14.5) H Platelet Count 211 x10^3/uL (140-400) Neutrophils (%) (Auto) 67 % (31-73) Lymphocytes (%) (Auto) 25 % (24-48) Monocytes (%) (Auto) 7 % (0-9) Eosinophils (%) (Auto) 0 % (0-3) Basophils (%) (Auto) 1 % (0-3) Neutrophils # (Auto) 7.3 x10^3uL (1.8-7.7) Lymphocytes # (Auto) 2.7 x10^3/uL (1.0-4.8) Monocytes # (Auto) 0.8 x10^3/uL (0.0-1.1) Eosinophils # (Auto) 0.0 x10^3/uL (0.0-0.7) Basophils # (Auto) 0.1 x10^3/uL (0.0-0.2) Sodium Level 135 mmol/L (136-145) L Potassium Level 4.3 mmol/L (3.5-5.1) Chloride Level 98 mmol/L (98-107) Carbon Dioxide Level 33 mmol/L (21-32) H Anion Gap 4 (6-14) L Blood Urea Nitrogen 17 mg/dL (8-26) Creatinine 0.9 mg/dL (0.7-1.3) Estimated GFR (Cockcroft-Gault) 85.2 BUN/Creatinine Ratio 19 (6-20) Glucose Level 80 mg/dL (70-99) Calcium Level 9.2 mg/dL (8.5-10.1) Total Bilirubin 0.4 mg/dL (0.2-1.0) Aspartate Amino Transferase (AST) 59 U/L (15-37) H Alanine Aminotransferase (ALT) 132 U/L (16-63) H Alkaline Phosphatase 45 U/L (46-116) L Total Protein 6.2 g/dL (6.4-8.2) L Albumin 3.1 g/dL (3.4-5.0) L Albumin/Globulin Ratio 1.0 (1.0-1.7) [place] Level 0.3 mmol/L (0.6-1.2) L [place] Last Dose Date 05/07/19 [place] Last Dose Time 2100 Current Medications: Meds: Current Medications Medications (Trade) Dose Ordered Sig/Danielle Route PRN Reason Start Time Stop Time Status Last Admin Dose Admin Ropinirole HCl (Requip) 0.25 mg QHS PO 05/08/19 21:00 05/08/19 19:34 [place] Carbonate 300 mg BID PO 05/08/19 21:00 05/08/19 19:35 I have reviewed the current psychotropics carefully including drug interactions. Risk benefit ratio favors no change other than as noted in my dictated progress note. Diagnosis: Problems: (1) Anxiety disorder (2) Bipolar affective, mixed, sev w/ psych (3) Schizoaffective disorder, bipolar type (4) Impulse control disorder (5) Methamphetamine abuse ROSSI GONZALEZ MD May 08, 2019 22:34
--- NOTE | 2019-05-09 05:03 | PN ---
DATE: 05/07/2019 PSYCHIATRIC PROGRESS NOTE This late entry 05/07/2019 covers elements not covered in my initial note. SUBJECTIVE: The patient slept 7 hours previous night. He wants something for his leg cramps. We will defer to Dr. Lainez, Neurology, Dr. Reyes medically. Slept 7 hours. Sodium slightly low. REVIEW OF SYSTEMS: Impaired ambulation. No other review of systems symptoms. MENTAL STATUS EXAM: Oriented to himself and situation. Speech is coherent, at times somewhat pressured as before. No suicidal or homicidal ideation. LABORATORY DATA: Reviewed. IMPRESSION: Unchanged from initial note. PLAN: No change from initial note. MAN Marta GONZALEZ MD DR: TYRESE/lopez JOB#: [id number] / [id number]
--- NOTE | 2019-05-09 05:14 | PN ---
DATE: 05/06/2019 PSYCHIATRIC PROGRESS NOTE This late entry 05/06/2019 covers elements not covered in my initial note. SUBJECTIVE: I met with the patient in the evening. The patient slept 5-3/4 hours previous night, compliant with medications at night. He complains of legs twitching, has been seen by Dr. Lainez. Trazodone had to be repeated previous night, 50 mg. REVIEW OF SYSTEMS: Positive for restless leg, impaired ambulation. No CV, , pulmonary, eye, ENT system symptoms on review. MENTAL STATUS EXAM: Oriented to himself and situation. Speech is coherent, at times pressured. Abstraction fair, computation impaired, language function intact. Mood and affect remain somewhat anxious, labile. IMPRESSION: Schizoaffective disorder, bipolar type, mixed versus depressed; anxiety disorder, unspecified; history of methamphetamine abuse. PLAN: Continue lithium carbonate 300 mg at bedtime. Check labs and lithium level in 2 days. Maintain Risperdal 1 mg at bedtime. Rest unchanged including IM Invega. MAN Marta GONZALEZ MD DR: TYRESE/lopez JOB#: [id number] / [id number]
[2019-05-09] MEDS: IPRATRPIUM/ALBUTEROL 0.5/2.5MG 3 ML NEBU. NEB SCH ×4 (05:23→22:33)
[2019-05-09 05:47] VITALS: BP 157/82
[2019-05-09] MEDS: FLUTICASONE 50MCG/NASAL SPRAY 16GM BOTTLE. NS SCH (08:06)
[2019-05-09] MEDS: NICOTINE 14MG PATCH. TD SCH (08:06)
[2019-05-09] MEDS: SERTRALINE 50 MG TABLET. PO SCH (08:07)
[2019-05-09] MEDS: TAMSULOSIN 0.4 MG CAP.ER.24H. PO SCH (08:07)
[2019-05-09] MEDS: PANTOPRAZOLE 40 MG TABLET. PO SCH (08:07)
[2019-05-09] MEDS: LISINOPRIL 10 MG TABLET PO SCH (08:07)
[2019-05-09] MEDS: LITHIUM CARBONATE 300 MG TABLET PO SCH ×2 (08:07→19:08)
[2019-05-09] MEDS: predniSONE 10 MG TABLET PO SCH (08:47)
[2019-05-09 15:48] VITALS: BP 109/61
[2019-05-09] MEDS: tiZANidine 4 MG TABLET. PO PRN (15:58)
[2019-05-09] MEDS: ACETAMINOPHEN 325 MG TABLET PO PRN (15:58)
[2019-05-09] MEDS: risperiDONE 1 MG TABLET. PO SCH (19:08)
[2019-05-09] MEDS: rOPINIRole 0.25 MG TABLET. PO SCH (19:08)
[2019-05-09] MEDS: traZODone 50 MG TABLET. PO PRN (19:20)
[2019-05-09] MEDS: clonazePAM 0.5 MG TABLET PO PRN (19:20)
--- NOTE | 2019-05-09 22:32 | PDOC ---
Exam Note: Elvis Note: Please also refer to the separate dictated note~for this date of service dictated separately.~Patient seen individually. Discussed the patient with Nursing staff reviewed the chart.~Reviewed interim history and current functioning. Reviewed vital signs,~Labs/ Radiology~and current medications noted below. Continue current treatment with the changes noted in the dictated addendum note Assessment: Vital Signs/I&O: Vital Signs Date Time Temp Pulse Resp B/P (MAP) Pulse Ox O2 Delivery O2 Flow Rate FiO2 05/09/19 16:08 98 Room Air 05/09/19 15:48 98.4 80 16 109/61 (77) I & O 05/08/19 05/08/19 05/09/19 14:59 22:59 06:59 Intake Total 600 ml 240 ml 240 ml Balance 600 ml 240 ml 240 ml Current Medications: Meds: Current Medications Medications (Trade) Dose Ordered Sig/Danielle Route PRN Reason Start Time Stop Time Status Last Admin Dose Admin Prednisone (Prednisone) 10 mg DAILY PO 05/09/19 09:00 05/11/19 09:01 05/09/19 08:47 I have reviewed the current psychotropics carefully including drug interactions. Risk benefit ratio favors no change other than as noted in my dictated progress note. Diagnosis: Problems: (1) Anxiety disorder (2) Bipolar affective, mixed, sev w/ psych (3) Schizoaffective disorder, bipolar type (4) Impulse control disorder (5) Methamphetamine abuse ROSSI GONZALEZ MD May 09, 2019 22:32
[2019-05-10 05:30] VITALS: BP 129/80
[2019-05-10] MEDS: IPRATRPIUM/ALBUTEROL 0.5/2.5MG 3 ML NEBU. NEB SCH ×4 (05:51→21:32)
[2019-05-10] MEDS: predniSONE 10 MG TABLET PO SCH (08:10)
[2019-05-10] MEDS: PANTOPRAZOLE 40 MG TABLET. PO SCH (08:10)
[2019-05-10] MEDS: LISINOPRIL 10 MG TABLET PO SCH (08:10)
[2019-05-10] MEDS: LITHIUM CARBONATE 300 MG TABLET PO SCH ×2 (08:10→19:24)
[2019-05-10] MEDS: SERTRALINE 50 MG TABLET. PO SCH (08:10)
[2019-05-10] MEDS: TAMSULOSIN 0.4 MG CAP.ER.24H. PO SCH (08:10)
[2019-05-10] MEDS: NICOTINE 14MG PATCH. TD SCH (08:11)
[2019-05-10] MEDS: FLUTICASONE 50MCG/NASAL SPRAY 16GM BOTTLE. NS SCH (08:12)
[2019-05-10] MEDS: tiZANidine 4 MG TABLET. PO PRN (14:10)
[2019-05-10] MEDS: clonazePAM 0.5 MG TABLET PO PRN (14:10)
[2019-05-10 15:50] VITALS: BP 98/62
[2019-05-10] MEDS: ACETAMINOPHEN 325 MG TABLET PO PRN ×2 (16:32→21:41)
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
[2019-05-10] MEDS: risperiDONE 1 MG TABLET. PO SCH (19:24)
[2019-05-10] MEDS: rOPINIRole 0.25 MG TABLET. PO SCH (19:24)
[2019-05-10] MEDS: traZODone 50 MG TABLET. PO PRN (19:26)
--- NOTE | 2019-05-10 22:12 | PDOC ---
Exam Note: Elvis Note: Please also refer to the separate dictated note~for this date of service dictated separately.~Patient seen individually. Discussed the patient with Nursing staff reviewed the chart.~Reviewed interim history and current functioning. Reviewed vital signs,~Labs/ Radiology~and current medications noted below. Continue current treatment with the changes noted in the dictated addendum note Assessment: Vital Signs/I&O: Vital Signs Date Time Temp Pulse Resp B/P (MAP) Pulse Ox O2 Delivery O2 Flow Rate FiO2 05/10/19 21:33 Room Air 05/10/19 15:50 98.6 64 16 98/62 (74) 98 I & O 05/09/19 05/09/19 05/10/19 14:59 22:59 06:59 Intake Total 480 ml 480 ml Balance 480 ml 480 ml Current Medications: I have reviewed the current psychotropics carefully including drug interactions. Risk benefit ratio favors no change other than as noted in my dictated progress note. Diagnosis: Problems: (1) Anxiety disorder (2) Bipolar affective, mixed, sev w/ psych (3) Schizoaffective disorder, bipolar type (4) Impulse control disorder (5) Methamphetamine abuse ROSSI GONZALEZ MD May 10, 2019 22:12
[2019-05-11] MEDS: ACETAMINOPHEN 325 MG TABLET PO PRN ×2 (04:17→22:25)
--- NOTE | 2019-05-11 05:24 | PN ---
DATE: 05/09/2019 PSYCHIATRIC PROGRESS NOTE This late entry 05/09/2019 covers elements not covered in my initial note. SUBJECTIVE: I met with the patient evening of 05/09/2019. The patient slept 7-3/4 hours previous night. He still states he is depressed, somewhat isolative until about 4 p.m., then came out to the day room. He got some Tylenol and Zanaflex for his muscle cramps. REVIEW OF SYSTEMS: Ambulation impaired with walker. No CV, , pulmonary, eye system symptoms on review other than the restless legs and anxiety, wanting Klonopin. MENTAL STATUS EXAMINATION: Reasonably oriented. Speech is coherent, abstraction fair, computation impaired, language function intact, attention span short. LABORATORY DATA: Reviewed. IMPRESSION: Schizoaffective disorder, bipolar type, mixed with psychotic features; bipolar disorder, mixed with psychotic features; history of polysubstance abuse; anxiety disorder, unspecified. PLAN: [place] was increased to 300 mg twice a day since level was 0.3. We will repeat labs level. Continue rest of the psychotropics unchanged for now. MAN Marta GONZALEZ MD DR: TYRESE/lopez JOB#: [id number] / [id number]
[2019-05-11] MEDS: IPRATRPIUM/ALBUTEROL 0.5/2.5MG 3 ML NEBU. NEB SCH ×4 (05:41→20:58)
[2019-05-11 06:30] VITALS: BP 123/70
[2019-05-11] MEDS: NICOTINE 14MG PATCH. TD SCH (08:01)
[2019-05-11] MEDS: FLUTICASONE 50MCG/NASAL SPRAY 16GM BOTTLE. NS SCH (08:01)
[2019-05-11] MEDS: LITHIUM CARBONATE 300 MG TABLET PO SCH ×2 (08:02→20:02)
[2019-05-11] MEDS: SERTRALINE 50 MG TABLET. PO SCH (08:02)
[2019-05-11] MEDS: PANTOPRAZOLE 40 MG TABLET. PO SCH (08:03)
[2019-05-11] MEDS: LISINOPRIL 10 MG TABLET PO SCH (08:03)
[2019-05-11] MEDS: TAMSULOSIN 0.4 MG CAP.ER.24H. PO SCH (08:03)
[2019-05-11] MEDS: predniSONE 10 MG TABLET PO SCH (08:03)
[2019-05-11 15:29] VITALS: BP 105/70
[2019-05-11] MEDS: clonazePAM 0.5 MG TABLET PO PRN (17:35)
[2019-05-11] MEDS: tiZANidine 4 MG TABLET. PO PRN (17:35)
[2019-05-11] MEDS: risperiDONE 1 MG TABLET. PO SCH (20:02)
[2019-05-11] MEDS: rOPINIRole 0.5 MG TABLET. PO SCH (20:03)
[2019-05-11] MEDS: traZODone 50 MG TABLET. PO PRN (20:06)
[2019-05-11] MEDS ORDERED: rOPINIRole 0.5 MG TABLET. PO SCH (21:00)
--- NOTE | 2019-05-11 22:14 | PDOC ---
Exam Note: Elvis Note: Please also refer to the separate dictated note~for this date of service dictated separately.~Patient seen individually. Discussed the patient with Nursing staff reviewed the chart.~Reviewed interim history and current functioning. Reviewed vital signs,~Labs/ Radiology~and current medications noted below. Continue current treatment with the changes noted in the dictated addendum note Assessment: Vital Signs/I&O: Vital Signs Date Time Temp Pulse Resp B/P (MAP) Pulse Ox O2 Delivery O2 Flow Rate FiO2 05/11/19 20:59 98 Room Air 05/11/19 15:29 98.9 71 16 105/70 (82) I & O 05/10/19 05/10/19 05/11/19 14:59 22:59 06:59 Intake Total 720 ml 480 ml 240 ml Balance 720 ml 480 ml 240 ml Current Medications: Meds: Current Medications Medications (Trade) Dose Ordered Sig/Danielle Route PRN Reason Start Time Stop Time Status Last Admin Dose Admin Ropinirole HCl (Requip) 0.5 mg 1600,2100 PO 05/11/19 21:00 05/11/19 20:03 I have reviewed the current psychotropics carefully including drug interactions. Risk benefit ratio favors no change other than as noted in my dictated progress note. Diagnosis: Problems: (1) Anxiety disorder (2) Bipolar affective, mixed, sev w/ psych (3) Schizoaffective disorder, bipolar type (4) Impulse control disorder (5) Methamphetamine abuse ROSSI GONZALEZ MD May 11, 2019 22:14
[2019-05-12] MEDS: ACETAMINOPHEN 325 MG TABLET PO PRN (04:46)
[2019-05-12] MEDS: IPRATRPIUM/ALBUTEROL 0.5/2.5MG 3 ML NEBU. NEB SCH ×4 (05:28→19:42)
[2019-05-12 06:15] VITALS: BP 121/77
[2019-05-12 07:33] LABS: CALCIUM 8.9 mg/dL (8.5-10.1); CREATININE 0.8 mg/dL (0.7-1.3); GFR 97.6; POTASSIUM 4.4 mmol/L (3.5-5.1); TOTAL BILIRUBIN 0.5 mg/dL (0.2-1.0); TOTAL PROTEIN 6.1 g/dL (6.4-8.2)
[2019-05-12 07:37] LABS: BASO # 0.1 x10^3/uL (0.0-0.2); BASO % 1 % (0-3); EOS # 0.1 x10^3/uL (0.0-0.7); EOS % 1 % (0-3); HEMATOCRIT 38.4 % (39.0-53.0); HEMOGLOBIN 12.7 g/dL (13.0-17.5); LYMPH # 2.8 x10^3/uL (1.0-4.8); LYMPH % 28 % (24-48); MEAN CORPUSCULAR HEMOGLOBIN 31 pg (25-35); MEAN CORPUSCULAR HGB CONC 33 g/dL (31-37); MEAN CORPUSCULAR VOLUME 92 fL (79-100); MONO # 0.8 x10^3/uL (0.0-1.1); MONO % 8 % (0-9); NEUT # 6.4 x10^3uL (1.8-7.7); NEUT % 63 % (31-73); PLATELET COUNT 203 x10^3/uL (140-400); RED BLOOD COUNT 4.16 x10^6/uL (4.30-5.70); RED CELL DISTRIBUTION WIDTH 15.5 % (11.5-14.5); WHITE BLOOD COUNT 10.2 x10^3/uL (4.0-11.0)
[2019-05-12] MEDS: FLUTICASONE 50MCG/NASAL SPRAY 16GM BOTTLE. NS SCH (07:44)
[2019-05-12] MEDS: PANTOPRAZOLE 40 MG TABLET. PO SCH (07:44)
[2019-05-12] MEDS: LISINOPRIL 10 MG TABLET PO SCH (07:45)
[2019-05-12] MEDS: SERTRALINE 50 MG TABLET. PO SCH (07:46)
[2019-05-12] MEDS: TAMSULOSIN 0.4 MG CAP.ER.24H. PO SCH (07:46)
[2019-05-12] MEDS: LITHIUM CARBONATE 300 MG TABLET PO SCH ×2 (07:46→19:49)
[2019-05-12] MEDS: NICOTINE 14MG PATCH. TD SCH (07:46)
--- NOTE | 2019-05-12 11:12 | PN ---
DATE: 05/11/2019 PSYCHIATRIC PROGRESS NOTE This late entry 05/10/2019 covers elements not covered in my initial note. SUBJECTIVE: I met with the patient in the evening of 05/10/2019. The patient slept 7-3/4 hours previous night. At night, he was in the day room, complained of shaking of his legs and at night, demanding snacks, later withdrawn to his room, frequently asking for Klonopin or pain medications for his legs. I met with him in his room at some length. Still complains of some discomfort in his lower extremities and movement, though these are better. REVIEW OF SYSTEMS: No CV, , pulmonary, eye, ENT system symptoms on review. MENTAL STATUS EXAM: Reasonably oriented. Speech is coherent, has some latency. Abstraction fair, computation impaired, language function intact, attention span short. Mood and affect is improved. LABORATORY DATA: Reviewed. IMPRESSION: Unchanged from initial note. PLAN: No change from initial note. ROSSI GONZALEZ MD DR: TYRESE/lopez JOB#: [id number] / [id number]
[2019-05-12] MEDS: predniSONE 5 MG TABLET PO SCH (12:56)
[2019-05-12 16:00] VITALS: BP 97/65
[2019-05-12] MEDS: rOPINIRole 0.5 MG TABLET. PO SCH ×2 (16:26→19:48)
[2019-05-12] MEDS: traZODone 50 MG TABLET. PO PRN (19:49)
[2019-05-12] MEDS: risperiDONE 0.5 MG TABLET. PO SCH (19:49)
[2019-05-13] MEDS: traZODone 50 MG TABLET. PO PRN ×3 (01:29→21:21)
[2019-05-13] MEDS: tiZANidine 4 MG TABLET. PO PRN ×2 (01:29→18:40)
[2019-05-13] MEDS: ACETAMINOPHEN 325 MG TABLET PO PRN ×2 (02:56→21:21)
[2019-05-13] MEDS: clonazePAM 0.5 MG TABLET PO PRN (02:56)
[2019-05-13] MEDS: IPRATRPIUM/ALBUTEROL 0.5/2.5MG 3 ML NEBU. NEB SCH ×4 (06:10→20:00)
[2019-05-13 06:15] VITALS: BP 126/80
[2019-05-13] MEDS: LITHIUM CARBONATE 300 MG TABLET PO SCH ×2 (07:58→20:10)
[2019-05-13] MEDS: LISINOPRIL 10 MG TABLET PO SCH (07:59)
[2019-05-13] MEDS: PANTOPRAZOLE 40 MG TABLET. PO SCH (07:59)
[2019-05-13] MEDS: SERTRALINE 50 MG TABLET. PO SCH (07:59)
[2019-05-13] MEDS: TAMSULOSIN 0.4 MG CAP.ER.24H. PO SCH (07:59)
[2019-05-13] MEDS: predniSONE 5 MG TABLET PO SCH (07:59)
[2019-05-13] MEDS: CHOLECALCIFEROL (VITAMIN D3) 50,000 UNIT CAPSULE PO SCH (07:59)
[2019-05-13] MEDS: FLUTICASONE 50MCG/NASAL SPRAY 16GM BOTTLE. NS SCH (08:00)
[2019-05-13] MEDS: NICOTINE 14MG PATCH. TD SCH (08:00)
--- NOTE | 2019-05-13 10:11 | PDOC ---
Exam Note: Elvis Note: Late entry for DOS 05/12/2019. Please also refer to the separate dictated note~for this date of service dictated separately.~Patient seen individually. Discussed the patient with Nursing staff reviewed the chart.~Reviewed interim history and current functioning. Reviewed vital signs,~Labs/ Radiology~and current medications noted below. Continue current treatment with the changes noted in the dictated addendum note Assessment: Vital Signs/I&O: Vital Signs Date Time Temp Pulse Resp B/P (MAP) Pulse Ox O2 Delivery O2 Flow Rate FiO2 05/13/19 07:59 56 126/80 05/13/19 06:15 98.3 18 97 Room Air I & O 05/12/19 05/12/19 05/13/19 14:59 22:59 06:59 Intake Total 960 ml 240 ml 240 ml Balance 960 ml 240 ml 240 ml Current Medications: Meds: Current Medications Medications (Trade) Dose Ordered Sig/Danielle Route PRN Reason Start Time Stop Time Status Last Admin Dose Admin Risperidone (RisperDAL) 0.5 mg HS PO 05/12/19 21:00 05/12/19 19:49 I have reviewed the current psychotropics carefully including drug interactions. Risk benefit ratio favors no change other than as noted in my dictated progress note. Diagnosis: Problems: (1) Anxiety disorder (2) Bipolar affective, mixed, sev w/ psych (3) Schizoaffective disorder, bipolar type (4) Impulse control disorder (5) Methamphetamine abuse ROSSI GONZALEZ MD May 13, 2019 10:11
--- NOTE | 2019-05-13 11:38 | PN ---
DATE: 05/11/2019 This late entry, 05/11/2019, covers elements not covered in my initial note. SUBJECTIVE: I met with the patient evening of 05/11/2019. The patient slept 6 hours previous night. He has been incontinent at times, but sat out in groups during the day, less anxious. No PRNs noted. Requip was increased to 0.[address] day per Dr[address] Reyes on 05/10/2019. REVIEW OF SYSTEMS: Still complains of some restless legs. No CV, , pulmonary, eye, ENT system symptoms on review. MENTAL STATUS EXAM: Reasonably oriented. Speech coherent, abstraction fair, computation impaired, language function intact, attention span short. Mood and affect remain somewhat anxious, labile at times, withdrawn. LABORATORY DATA: Reviewed. IMPRESSION: Unchanged from initial note. PLAN: No change from initial note. Repeat lithium level is awaited. We will adjust to reach therapeutic level. Continue Invega, Risperdal, Zoloft for now. MAN Marta GONZALEZ MD DR: TYRESE/lopez JOB#: [id number] / [id number]
[2019-05-13 15:53] VITALS: BP 96/54
[2019-05-13] MEDS: rOPINIRole 0.5 MG TABLET. PO SCH ×2 (17:15→20:10)
[2019-05-13] MEDS: risperiDONE 0.5 MG TABLET. PO SCH (20:10)
--- NOTE | 2019-05-13 22:19 | PDOC ---
Exam Note: Elvis Note: Please also refer to the separate dictated note~for this date of service dictated separately.~Patient seen individually. Discussed the patient with Nursing staff reviewed the chart.~Reviewed interim history and current functioning. Reviewed vital signs,~Labs/ Radiology~and current medications noted below. Continue current treatment with the changes noted in the dictated addendum note Assessment: Vital Signs/I&O: Vital Signs Date Time Temp Pulse Resp B/P (MAP) Pulse Ox O2 Delivery O2 Flow Rate FiO2 05/13/19 15:53 98.1 62 16 96/54 (68) 98 05/13/19 06:15 Room Air I & O 05/12/19 05/12/19 05/13/19 14:59 22:59 06:59 Intake Total 960 ml 240 ml 240 ml Balance 960 ml 240 ml 240 ml Current Medications: I have reviewed the current psychotropics carefully including drug interactions. Risk benefit ratio favors no change other than as noted in my dictated progress note. Diagnosis: Problems: (1) Anxiety disorder (2) Bipolar affective, mixed, sev w/ psych (3) Schizoaffective disorder, bipolar type (4) Impulse control disorder (5) Methamphetamine abuse ROSSI GONZALEZ MD May 13, 2019 22:19
[2019-05-14 05:52] VITALS: BP 123/82
[2019-05-14] MEDS: IPRATRPIUM/ALBUTEROL 0.5/2.5MG 3 ML NEBU. NEB SCH ×4 (06:35→20:47)
[2019-05-14] MEDS: SERTRALINE 50 MG TABLET. PO SCH (08:04)
[2019-05-14] MEDS: NICOTINE 14MG PATCH. TD SCH (08:04)
[2019-05-14] MEDS: PANTOPRAZOLE 40 MG TABLET. PO SCH (08:04)
[2019-05-14] MEDS: LISINOPRIL 10 MG TABLET PO SCH (08:04)
[2019-05-14] MEDS: LITHIUM CARBONATE 300 MG TABLET PO SCH ×2 (08:05→19:47)
[2019-05-14] MEDS: predniSONE 5 MG TABLET PO SCH (08:05)
[2019-05-14] MEDS: TAMSULOSIN 0.4 MG CAP.ER.24H. PO SCH (08:05)
[2019-05-14] MEDS: FLUTICASONE 50MCG/NASAL SPRAY 16GM BOTTLE. NS SCH (11:55)
[2019-05-14 12:49] VITALS: BP 91/60
--- NOTE | 2019-05-14 13:06 | PN ---
DATE: 05/12/2019 PSYCHIATRIC PROGRESS NOTE This late entry 05/12/2019 covers elements not covered in my initial note. SUBJECTIVE: I met with the patient in the evening of 05/12/2019 and staffed a treatment team meeting in the morning. The patient is sleeping 6-1/2 hours average, slept 8-1/4 hours previous night. Appetite 75%. He still complains of restless legs, possibly partly due to akathisia and I had considered adding Inderal, but checked with Dr. Reyes. Given his history of COPD, we will avoid this and also by the time I met with him in the evening on 05/12/2019, he felt his restless legs were much better. REVIEW OF SYSTEMS: No CV, , pulmonary, eye, ENT system symptoms on review. MENTAL STATUS EXAM: Oriented toward himself and situation. Speech is coherent, abstraction fair, computation impaired, language function intact, attention span short. Mood and affect less labile. LABORATORY DATA: Reviewed. IMPRESSION: Unchanged from initial note. PLAN: No change from initial note. He is on Invega IM. We will reduce the oral Risperdal from 1 mg at bedtime down to 0.5 mg at bedtime consequent to possible akathisia. Continue rest unchanged, including Zoloft, lithium, trazodone, Requip. [place] level is awaited. Maintain IM Invega. MAN Marta GONZALEZ MD DR: TYRESE/lopez JOB#: [id number] / [id number]
[2019-05-14 15:38] VITALS: BP 137/69
[2019-05-14] MEDS: rOPINIRole 0.5 MG TABLET. PO SCH ×2 (16:08→19:47)
[2019-05-14] MEDS: traZODone 50 MG TABLET. PO PRN ×2 (19:47→21:32)
[2019-05-14] MEDS: risperiDONE 0.5 MG TABLET. PO SCH (19:47)
[2019-05-14] MEDS: ACETAMINOPHEN 325 MG TABLET PO PRN (21:32)
[2019-05-14] MEDS: tiZANidine 4 MG TABLET. PO PRN (21:32)
--- NOTE | 2019-05-14 22:43 | PDOC ---
Exam Note: Elvis Note: Please also refer to the separate dictated note~for this date of service dictated separately.~Patient seen individually. Discussed the patient with Nursing staff reviewed the chart.~Reviewed interim history and current functioning. Reviewed vital signs,~Labs/ Radiology~and current medications noted below. Continue current treatment with the changes noted in the dictated addendum note Assessment: Vital Signs/I&O: Vital Signs Date Time Temp Pulse Resp B/P (MAP) Pulse Ox O2 Delivery O2 Flow Rate FiO2 05/14/19 15:38 98.0 86 16 137/69 (91) 98 Room Air I & O 05/13/19 05/13/19 05/14/19 14:59 22:59 06:59 Intake Total 840 ml 360 ml Balance 840 ml 360 ml Current Medications: I have reviewed the current psychotropics carefully including drug interactions. Risk benefit ratio favors no change other than as noted in my dictated progress note. Diagnosis: Problems: (1) Anxiety disorder (2) Bipolar affective, mixed, sev w/ psych (3) Schizoaffective disorder, bipolar type (4) Impulse control disorder (5) Hepatitis C (6) Methamphetamine abuse ROSSI GONZALEZ MD May 14, 2019 22:43
[2019-05-15] MEDS: IPRATRPIUM/ALBUTEROL 0.5/2.5MG 3 ML NEBU. NEB SCH ×4 (05:29→21:00)
[2019-05-15 05:48] VITALS: BP 116/77
[2019-05-15 06:35] LABS: BASO # 0.1 x10^3/uL (0.0-0.2); BASO % 1 % (0-3); EOS # 0.2 x10^3/uL (0.0-0.7); EOS % 2 % (0-3); HEMATOCRIT 38.6 % (39.0-53.0); HEMOGLOBIN 12.7 g/dL (13.0-17.5); LYMPH # 2.8 x10^3/uL (1.0-4.8); LYMPH % 30 % (24-48); MEAN CORPUSCULAR HEMOGLOBIN 30 pg (25-35); MEAN CORPUSCULAR HGB CONC 33 g/dL (31-37); MEAN CORPUSCULAR VOLUME 92 fL (79-100); MONO # 0.6 x10^3/uL (0.0-1.1); MONO % 7 % (0-9); NEUT # 5.6 x10^3uL (1.8-7.7); NEUT % 60 % (31-73); PLATELET COUNT 186 x10^3/uL (140-400); RED BLOOD COUNT 4.19 x10^6/uL (4.30-5.70); RED CELL DISTRIBUTION WIDTH 15.8 % (11.5-14.5); WHITE BLOOD COUNT 9.3 x10^3/uL (4.0-11.0)
[2019-05-15 06:45] LABS: ALBUMIN 3.1 g/dL (3.4-5.0); ALBUMIN/GLOBULIN RATIO 1.1 (1.0-1.7); CALCIUM 9.3 mg/dL (8.5-10.1); CREATININE 0.9 mg/dL (0.7-1.3); GFR 85.2; TOTAL BILIRUBIN 0.7 mg/dL (0.2-1.0)
[2019-05-15] MEDS: PANTOPRAZOLE 40 MG TABLET. PO SCH (08:06)
[2019-05-15] MEDS: NICOTINE 14MG PATCH. TD SCH (08:06)
[2019-05-15] MEDS: TAMSULOSIN 0.4 MG CAP.ER.24H. PO SCH (08:07)
[2019-05-15] MEDS: LISINOPRIL 10 MG TABLET PO SCH (08:07)
[2019-05-15] MEDS: SERTRALINE 50 MG TABLET. PO SCH (08:07)
[2019-05-15] MEDS: LITHIUM CARBONATE 300 MG TABLET PO SCH ×2 (08:07→19:17)
[2019-05-15] MEDS: predniSONE 5 MG TABLET PO SCH (08:07)
[2019-05-15] MEDS: FLUTICASONE 50MCG/NASAL SPRAY 16GM BOTTLE. NS SCH (08:07)
[2019-05-15] MEDS: tiZANidine 4 MG TABLET. PO PRN (12:40)
[2019-05-15] MEDS: clonazePAM 0.5 MG TABLET PO PRN (12:40)
[2019-05-15] MEDS: ACETAMINOPHEN 325 MG TABLET PO PRN (13:50)
[2019-05-15] MEDS: METHYL SALICYLATE/MENTHOL TOPICAL OINTMENT 29GM TUBE. TP PRN (16:00)
[2019-05-15 16:02] VITALS: BP 95/63
[2019-05-15] MEDS: rOPINIRole 0.5 MG TABLET. PO SCH ×2 (17:24→19:16)
--- NOTE | 2019-05-15 18:03 | PN ---
DATE: 05/13/2019 PSYCHIATRIC PROGRESS NOTE This late entry May 13 covers elements not covered in my initial note. SUBJECTIVE: I met with the patient in the evening of May 13. The patient slept 4-3/4 hours previous night. He has been withdrawn, spends much time in his room, does complain of pain being better and restless leg symptoms are improved on the Requip 0.5 mg a day. [place] level is 0.7. Sodium slightly low at 132. REVIEW OF SYSTEMS: No CV, , pulmonary, eye, ENT system symptoms on review. MENTAL STATUS EXAM: Oriented to himself and situation. Speech is coherent. Abstraction fair. Computation impaired. Language function intact. Attention span short. Mood and affect somewhat withdrawn, but improved. LABORATORY DATA: Reviewed. IMPRESSION: Unchanged from initial note. PLAN: No change from initial note. MAN Marta GONZALEZ MD DR: TYRESE/lopez JOB#: [id number] / [id number]
[2019-05-15] MEDS: risperiDONE 0.5 MG TABLET. PO SCH (19:16)
[2019-05-15] MEDS: traZODone 50 MG TABLET. PO PRN (19:17)
--- NOTE | 2019-05-15 22:16 | PDOC ---
Exam Note: Elvis Note: Please also refer to the separate dictated note~for this date of service dictated separately.~Patient seen individually. Discussed the patient with Nursing staff reviewed the chart.~Reviewed interim history and current functioning. Reviewed vital signs,~Labs/ Radiology~and current medications noted below. Continue current treatment with the changes noted in the dictated addendum note Assessment: Vital Signs/I&O: Vital Signs Date Time Temp Pulse Resp B/P (MAP) Pulse Ox O2 Delivery O2 Flow Rate FiO2 05/15/19 21:01 93 Room Air 05/15/19 16:02 98.0 83 20 95/63 (74) I & O 05/14/19 05/14/19 05/15/19 14:59 22:59 06:59 Intake Total 600 ml 240 ml Balance 600 ml 240 ml Labs: Laboratory Tests Test 05/15/19 06:09 White Blood Count 9.3 x10^3/uL (4.0-11.0) Red Blood Count 4.19 x10^6/uL (4.30-5.70) L Hemoglobin 12.7 g/dL (13.0-17.5) L Hematocrit 38.6 % (39.0-53.0) L Mean Corpuscular Volume 92 fL (79-100) Mean Corpuscular Hemoglobin 30 pg (25-35) Mean Corpuscular Hemoglobin Concent 33 g/dL (31-37) Red Cell Distribution Width 15.8 % (11.5-14.5) H Platelet Count 186 x10^3/uL (140-400) Neutrophils (%) (Auto) 60 % (31-73) Lymphocytes (%) (Auto) 30 % (24-48) Monocytes (%) (Auto) 7 % (0-9) Eosinophils (%) (Auto) 2 % (0-3) Basophils (%) (Auto) 1 % (0-3) Neutrophils # (Auto) 5.6 x10^3uL (1.8-7.7) Lymphocytes # (Auto) 2.8 x10^3/uL (1.0-4.8) Monocytes # (Auto) 0.6 x10^3/uL (0.0-1.1) Eosinophils # (Auto) 0.2 x10^3/uL (0.0-0.7) Basophils # (Auto) 0.1 x10^3/uL (0.0-0.2) Sodium Level 136 mmol/L (136-145) Potassium Level 4.0 mmol/L (3.5-5.1) Chloride Level 101 mmol/L (98-107) Carbon Dioxide Level 31 mmol/L (21-32) Anion Gap 4 (6-14) L Blood Urea Nitrogen 15 mg/dL (8-26) Creatinine 0.9 mg/dL (0.7-1.3) Estimated GFR (Cockcroft-Gault) 85.2 BUN/Creatinine Ratio 17 (6-20) Glucose Level 82 mg/dL (70-99) Calcium Level 9.3 mg/dL (8.5-10.1) Total Bilirubin 0.7 mg/dL (0.2-1.0) Aspartate Amino Transferase (AST) 59 U/L (15-37) H Alanine Aminotransferase (ALT) 112 U/L (16-63) H Alkaline Phosphatase 38 U/L (46-116) L Total Protein 6.0 g/dL (6.4-8.2) L Albumin 3.1 g/dL (3.4-5.0) L Albumin/Globulin Ratio 1.1 (1.0-1.7) Current Medications: I have reviewed the current psychotropics carefully including drug interactions. Risk benefit ratio favors no change other than as noted in my dictated progress note. Diagnosis: Problems: (1) Anxiety disorder (2) Bipolar affective, mixed, sev w/ psych (3) Schizoaffective disorder, bipolar type (4) Impulse control disorder (5) Methamphetamine abuse ROSSI OGNZALEZ MD May 15, 2019 22:16
[2019-05-16] MEDS: METHYL SALICYLATE/MENTHOL TOPICAL OINTMENT 29GM TUBE. TP PRN ×3 (01:24→22:27)
[2019-05-16] MEDS: tiZANidine 4 MG TABLET. PO PRN (01:42)
[2019-05-16] MEDS: IPRATRPIUM/ALBUTEROL 0.5/2.5MG 3 ML NEBU. NEB SCH ×4 (05:53→21:30)
[2019-05-16 05:58] VITALS: BP 119/70
[2019-05-16] MEDS: NICOTINE 14MG PATCH. TD SCH (07:56)
[2019-05-16] MEDS: SERTRALINE 50 MG TABLET. PO SCH (07:57)
[2019-05-16] MEDS: LISINOPRIL 10 MG TABLET PO SCH ×2 (07:57→09:00)
[2019-05-16] MEDS: TAMSULOSIN 0.4 MG CAP.ER.24H. PO SCH (07:57)
[2019-05-16] MEDS: FLUTICASONE 50MCG/NASAL SPRAY 16GM BOTTLE. NS SCH (07:57)
[2019-05-16] MEDS: PANTOPRAZOLE 40 MG TABLET. PO SCH (07:57)
[2019-05-16] MEDS: predniSONE 5 MG TABLET PO SCH (07:57)
[2019-05-16] MEDS: LITHIUM CARBONATE 300 MG TABLET PO SCH ×2 (08:00→19:32)
[2019-05-16 08:28] VITALS: BP 101/69
[2019-05-16 16:06] VITALS: BP 111/70
[2019-05-16] MEDS: rOPINIRole 0.5 MG TABLET. PO SCH (17:30)
[2019-05-16] MEDS: rOPINIRole 1 MG TABLET. PO SCH (19:32)
[2019-05-16] MEDS: risperiDONE 0.5 MG TABLET. PO SCH (21:06)
--- NOTE | 2019-05-16 22:22 | PDOC ---
Exam Note: Elvis Note: Please also refer to the separate dictated note~for this date of service dictated separately.~Patient seen individually. Discussed the patient with Nursing staff reviewed the chart.~Reviewed interim history and current functioning. Reviewed vital signs,~Labs/ Radiology~and current medications noted below. Continue current treatment with the changes noted in the dictated addendum note Assessment: Vital Signs/I&O: Vital Signs Date Time Temp Pulse Resp B/P (MAP) Pulse Ox O2 Delivery O2 Flow Rate FiO2 05/16/19 21:30 100 Room Air 05/16/19 16:06 98.1 74 24 111/70 (84) I & O 05/15/19 05/15/19 05/16/19 15:00 23:00 07:00 Intake Total 840 ml 240 ml Balance 840 ml 240 ml Labs: Laboratory Tests Test 05/16/19 06:18 [place] Level 0.7 mmol/L (0.6-1.2) [place] Last Dose Date 05/15/19 [place] Last Dose Time 2100 Current Medications: Meds: Current Medications Medications (Trade) Dose Ordered Sig/Danielle Route PRN Reason Start Time Stop Time Status Last Admin Dose Admin Ropinirole HCl (Requip) 1 mg 1600,2100 PO 05/16/19 21:00 05/16/19 19:32 I have reviewed the current psychotropics carefully including drug interactions. Risk benefit ratio favors no change other than as noted in my dictated progress note. Diagnosis: Problems: (1) Anxiety disorder (2) Bipolar affective, mixed, sev w/ psych (3) Schizoaffective disorder, bipolar type (4) Impulse control disorder (5) Methamphetamine abuse ROSSI GONZALEZ MD May 16, 2019 22:22
[2019-05-17] MEDS: traZODone 50 MG TABLET. PO PRN ×2 (01:25→21:13)
[2019-05-17] MEDS: clonazePAM 0.5 MG TABLET PO PRN ×2 (02:15→21:13)
--- NOTE | 2019-05-17 03:26 | PN ---
DATE: 05/14/2019 PSYCHIATRIC PROGRESS NOTE This late entry, 05/14/2019, covers elements not covered in my initial note. SUBJECTIVE: I met with the patient on the evening of 05/14/2019. The patient slept 9 hours previous night. He is somewhat withdrawn, complains of being lightheaded. Compliant with his medications. BP 91/60, pulse 116 a minute; will defer to Dr. Reyes. He called his significant other, refused the 1600 Requip and is less obsessive. REVIEW OF SYSTEMS: Ambulates with a walker. No CV, , pulmonary, eye system symptoms on review, does complain of restless legs. MENTAL STATUS EXAM: Reasonably oriented. Speech has some latency, coherent. Abstraction fair, computation impaired, language function intact. Mood and affect somewhat withdrawn. LABORATORY DATA: Reviewed. IMPRESSION: Unchanged from initial note. PLAN: No change from initial note other than we may need to adjust the Requip for the ____. ROSSI GONZALEZ MD DR: TYRESE/lopez JOB#: [id number] / [id number]
[2019-05-17] MEDS: IPRATRPIUM/ALBUTEROL 0.5/2.5MG 3 ML NEBU. NEB SCH ×4 (05:36→21:16)
[2019-05-17 06:22] VITALS: BP 121/75
[2019-05-17] MEDS: LITHIUM CARBONATE 300 MG TABLET PO SCH ×2 (08:25→21:11)
[2019-05-17] MEDS: TAMSULOSIN 0.4 MG CAP.ER.24H. PO SCH (08:26)
[2019-05-17] MEDS: SERTRALINE 50 MG TABLET. PO SCH (08:26)
[2019-05-17] MEDS: LISINOPRIL 10 MG TABLET PO SCH (08:26)
[2019-05-17] MEDS: PANTOPRAZOLE 40 MG TABLET. PO SCH (08:26)
[2019-05-17] MEDS: NICOTINE 14MG PATCH. TD SCH (08:26)
[2019-05-17] MEDS: FLUTICASONE 50MCG/NASAL SPRAY 16GM BOTTLE. NS SCH (08:27)
[2019-05-17 16:08] VITALS: BP 100/60
--- NOTE | 2019-05-17 17:11 | PN ---
DATE: 05/16/2019 This late entry, 05/16/2019, covers elements not covered in my initial note. SUBJECTIVE: I met with the patient evening of 05/16/2019 in his room. He slept 7-1/4 hours previous night. In the morning, he complained of being somewhat dizzy, lightheaded, complains of restless legs symptoms, BP 101/63. Lisinopril was held. Heart rate was elevated, somewhat withdrawn to his room, sat in groups later. REVIEW OF SYSTEMS: Ambulation impaired due to his restless legs. No CV, , pulmonary, eye system symptoms on review. MENTAL STATUS EXAM: Oriented reasonably. Speech is coherent, abstraction fair, computation impaired, language function intact, attention span short. Mood and affect somewhat withdrawn. LABORATORY DATA: Reviewed. [place] level is awaited. IMPRESSION: Unchanged from initial note. PLAN: No change from initial note and adjust lithium, post-level received. ROSSI GONZALEZ MD DR: TYRESE/lopez JOB#: [id number] / [id number]
[2019-05-17] MEDS: rOPINIRole 1 MG TABLET. PO SCH ×2 (17:23→21:14)
[2019-05-17] MEDS: risperiDONE 0.5 MG TABLET. PO SCH (21:11)
[2019-05-17] MEDS: tiZANidine 4 MG TABLET. PO PRN (21:13)
--- NOTE | 2019-05-17 22:11 | PDOC ---
Exam Note: Elvis Note: Please also refer to the separate dictated note~for this date of service dictated separately.~Patient seen individually. Discussed the patient with Nursing staff reviewed the chart.~Reviewed interim history and current functioning. Reviewed vital signs,~Labs/ Radiology~and current medications noted below. Continue current treatment with the changes noted in the dictated addendum note Assessment: Vital Signs/I&O: Vital Signs Date Time Temp Pulse Resp B/P (MAP) Pulse Ox O2 Delivery O2 Flow Rate FiO2 05/17/19 21:08 99 Room Air 05/17/19 16:08 97.8 67 16 100/60 (73) I & O 05/16/19 05/16/19 05/17/19 14:59 22:59 06:59 Intake Total 840 ml 960 ml Balance 840 ml 960 ml Current Medications: I have reviewed the current psychotropics carefully including drug interactions. Risk benefit ratio favors no change other than as noted in my dictated progress note. Diagnosis: Problems: (1) Anxiety disorder (2) Bipolar affective, mixed, sev w/ psych (3) Schizoaffective disorder, bipolar type (4) Impulse control disorder (5) Methamphetamine abuse ROSSI GONZALEZ MD May 17, 2019 22:11
--- NOTE | 2019-05-18 06:02 | PN ---
DATE: 05/15/2019 PSYCHIATRIC PROGRESS NOTE This late entry of 05/15/2019 covers elements not covered in my initial note. SUBJECTIVE: I met with the patient in the evening of 05/15/2019. The patient slept 3-3/4 hours previous night. He has been anxious, restless with constant movement of his legs and we will defer to Dr. Lainez for this. Prior day, he was obsessive calling out for his in the morning, received Klonopin and Zanaflex with some response. We will check a lithium level in the morning of 05/16/2019. REVIEW OF SYSTEMS: No CV, , pulmonary, eye, ENT system symptoms on review. Complains of restless legs. MENTAL STATUS EXAM: Oriented to himself and situation. Speech is coherent, abstraction fair, computation impaired, language function intact, attention span short. Mood and affect remain somewhat anxious, labile. LABORATORY DATA: Reviewed. IMPRESSION: Schizoaffective disorder, bipolar type, mixed with psychotic features. Rest unchanged. PLAN: Continue current psychotropics. Check a lithium level in the morning of 05/16/2019. Adjust further as clinically indicated. MAN Marta GONZALEZ MD DR: TYRESE/lopez JOB#: [id number] / [id number]
[2019-05-18 06:33] VITALS: BP 125/74
[2019-05-18] MEDS: IPRATRPIUM/ALBUTEROL 0.5/2.5MG 3 ML NEBU. NEB SCH ×4 (08:00→20:47)
[2019-05-18] MEDS: SERTRALINE 50 MG TABLET. PO SCH (08:20)
[2019-05-18] MEDS: LITHIUM CARBONATE 300 MG TABLET PO SCH ×2 (08:21→19:23)
[2019-05-18] MEDS: TAMSULOSIN 0.4 MG CAP.ER.24H. PO SCH (08:21)
[2019-05-18] MEDS: LISINOPRIL 10 MG TABLET PO SCH (08:21)
[2019-05-18] MEDS: tiZANidine 4 MG TABLET. PO PRN ×2 (08:21→23:11)
[2019-05-18] MEDS: NICOTINE 14MG PATCH. TD SCH (08:21)
[2019-05-18] MEDS: PANTOPRAZOLE 40 MG TABLET. PO SCH (08:22)
[2019-05-18] MEDS: FLUTICASONE 50MCG/NASAL SPRAY 16GM BOTTLE. NS SCH (08:25)
[2019-05-18] MEDS ORDERED: PALIPERIDONE PALMITATE 234 MG/1.5 ML SYRINGE KIT. IM SCH (09:00)
[2019-05-18] MEDS: ACETAMINOPHEN 325 MG TABLET PO PRN (13:05)
[2019-05-18 15:38] VITALS: BP 87/59
[2019-05-18] MEDS: rOPINIRole 1 MG TABLET. PO SCH ×2 (16:34→19:24)
[2019-05-18] MEDS: risperiDONE 0.5 MG TABLET. PO SCH (19:24)
[2019-05-18] MEDS: traZODone 50 MG TABLET. PO PRN ×2 (19:25→23:10)
--- NOTE | 2019-05-18 22:13 | PDOC ---
Exam Note: Elvis Note: Please also refer to the separate dictated note~for this date of service dictated separately.~Patient seen individually. Discussed the patient with Nursing staff reviewed the chart.~Reviewed interim history and current functioning. Reviewed vital signs,~Labs/ Radiology~and current medications noted below. Continue current treatment with the changes noted in the dictated addendum note Assessment: Vital Signs/I&O: Vital Signs Date Time Temp Pulse Resp B/P (MAP) Pulse Ox O2 Delivery O2 Flow Rate FiO2 05/18/19 20:47 99 Room Air 05/18/19 15:38 97.9 110 16 87/59 (68) I & O 05/17/19 05/17/19 05/18/19 14:59 22:59 06:59 Intake Total 1080 ml 240 ml 480 ml Balance 1080 ml 240 ml 480 ml Current Medications: Meds: Current Medications Medications (Trade) Dose Ordered Sig/Danielle Route PRN Reason Start Time Stop Time Status Last Admin Dose Admin Paliperidone Palmitate (Invega Sust[place]) 234 mg [id number] IM 05/18/19 09:00 05/18/19 08:22 I have reviewed the current psychotropics carefully including drug interactions. Risk benefit ratio favors no change other than as noted in my dictated progress note. Diagnosis: Problems: (1) Anxiety disorder (2) Bipolar affective, mixed, sev w/ psych (3) Schizoaffective disorder, bipolar type (4) Impulse control disorder (5) Methamphetamine abuse ROSSI GONZALEZ MD May 18, 2019 22:13
[2019-05-19] MEDS: ACETAMINOPHEN 325 MG TABLET PO PRN (00:56)
[2019-05-19] MEDS ORDERED: ACET325T9 PO (01:21)
[2019-05-19] MEDS ORDERED: CHOL500021 PO (01:22)
[2019-05-19] MEDS ORDERED: LITH300T3 PO (01:22)
[2019-05-19] MEDS ORDERED: MAGN2400 PO (01:23)
[2019-05-19] MEDS ORDERED: MAG355OR17 PO (01:23)
[2019-05-19] MEDS ORDERED: METH29OI TP (01:24)
[2019-05-19] MEDS ORDERED: OLAN5TAB5 PO (01:24)
[2019-05-19] MEDS ORDERED: PANT40TA5 PO (01:24)
[2019-05-19] MEDS ORDERED: ROPI1TAB2 PO (01:26)
[2019-05-19] MEDS ORDERED: RISP0.5T3 PO (01:26)
[2019-05-19] MEDS ORDERED: TRAZ-120 PO (01:27)
[2019-05-19] MEDS: clonazePAM 0.5 MG TABLET PO PRN (04:08)
[2019-05-19] MEDS: IPRATRPIUM/ALBUTEROL 0.5/2.5MG 3 ML NEBU. NEB SCH ×2 (05:00→09:37)
[2019-05-19 06:06] VITALS: BP 122/66
[2019-05-19 08:01] VITALS: BP 122/66
[2019-05-19] MEDS: LISINOPRIL 10 MG TABLET PO SCH (08:01)
[2019-05-19] MEDS: TAMSULOSIN 0.4 MG CAP.ER.24H. PO SCH (08:01)
[2019-05-19] MEDS: NICOTINE 14MG PATCH. TD SCH (08:01)
[2019-05-19] MEDS: SERTRALINE 50 MG TABLET. PO SCH (08:02)
[2019-05-19] MEDS: PANTOPRAZOLE 40 MG TABLET. PO SCH (08:02)
[2019-05-19] MEDS: FLUTICASONE 50MCG/NASAL SPRAY 16GM BOTTLE. NS SCH (08:02)
[2019-05-19] MEDS: LITHIUM CARBONATE 300 MG TABLET PO SCH (08:02)
--- NOTE | 2019-05-19 18:19 | PN ---
DATE: 05/17/2019 PSYCHIATRIC PROGRESS NOTE This late entry 05/17/2019 covers elements not covered in my initial note. SUBJECTIVE: I met with the patient in the evening of 05/17/2019. I met with him at length in his room. The patient slept 4-1/4 hours previous night. He reportedly had a bad night, frequently asking for medications, Klonopin for his anxiety and restless legs. Dr. Lainez has increased the Requip. He has been tapping his foot repeatedly, but by the time I met with him in the evening of 05/17/2019, he felt better. REVIEW OF SYSTEMS: No CV, , pulmonary, eye, ENT system symptoms on review. MENTAL STATUS EXAM: Reasonably oriented. Speech is coherent, has some latency. Abstraction fair, computation impaired, language function intact, attention span short. Mood and affect remain somewhat withdrawn. LABORATORY DATA: Reviewed. [place] level is 0.7 on 05/15/2019. IMPRESSION: Unchanged from initial note. PLAN: No change from initial note. MAN Marta GONZALEZ MD DR: TYRESE/lopez JOB#: [id number] / [id number]
--- NOTE | 2019-05-19 22:34 | PDOC ---
Exam Note: Elvis Note: Please also refer to the separate dictated note~for this date of service dictated separately.~Patient seen individually. Discussed the patient with Nursing staff reviewed the chart.~Reviewed interim history and current functioning. Reviewed vital signs,~Labs/ Radiology~and current medications noted below. Continue current treatment with the changes noted in the dictated addendum note Assessment: Vital Signs/I&O: Vital Signs Date Time Temp Pulse Resp B/P (MAP) Pulse Ox O2 Delivery O2 Flow Rate FiO2 05/19/19 08:01 74 122/66 05/19/19 06:06 98.8 24 94 Room Air I & O 05/18/19 05/18/19 05/19/19 15:00 23:00 07:00 Intake Total 480 ml 480 ml Balance 480 ml 480 ml Current Medications: I have reviewed the current psychotropics carefully including drug interactions. Risk benefit ratio favors no change other than as noted in my dictated progress note. Diagnosis: Problems: (1) Anxiety disorder (2) Bipolar affective, mixed, sev w/ psych (3) Schizoaffective disorder, bipolar type (4) Impulse control disorder (5) Methamphetamine abuse ROSSI GONZALEZ MD May 19, 2019 22:34
--- NOTE | 2019-05-20 09:30 | DS ---
DATE OF DISCHARGE: 05/19/2019 DISCHARGE SUMMARY AND PSYCHIATRIC PROGRESS NOTE This late entry, 05/19/2019, covers elements not covered in my initial note. REASON FOR ADMISSION: Please refer to the admission history for details. Briefly, the patient is a 63-year-old male referred to us from [facility] in [place], [place] by his primary care physician on account of increased symptoms of depression, withdrawal, apathy, immotivation, making statements of wanting to . He had poor concentration and was tearful. He does have a history of bipolar disorder, has been depressed, recently has failed outpatient psychiatric treatment resulting in this referral. SIGNIFICANT FINDINGS AND CLINICAL COURSE: Following admission, the patient was seen daily individually by myself from a psychiatric standpoint, medical followup with Dr. Reyes/Dr. Mclain. He did see Dr. Lainez, neurologist, for his symptoms of restless legs, which were quite significant and treated on Requip with some relief. Initially following admission, he remained depressed, withdrawn, paranoid. He seemed to respond to a combination of Invega 234 mg every 3 weeks IM, which was continued from admission and he was on Klonopin 0.5 mg b.i.d. p.r.n. Risperdal was initially increased and then consequent to some EPS symptoms reduced back to 0.5 mg p.o. at bedtime and Zoloft 50 mg a day. He was started on lithium as a mood stabilizer and had a therapeutic level of 0.7 on 300 mg b.i.d. Trazodone was used 50 mg at bedtime p.r.n. insomnia, march repeat x 1; Requip for restless legs 1 mg at 1600 and 2100, Zyprexa p.r.n. REVIEW OF SYSTEMS: Prior to discharge on 05/19/2019, ambulation somewhat impaired due to restless legs, but no CV, , pulmonary, eye system symptoms on review. MENTAL STATUS EXAM: Reasonably oriented. Speech is coherent, has some latency. Abstraction fair, computation somewhat impaired, language function intact. Mood and affect is improved. No suicidal ideation at discharge. FINAL DIAGNOSES: Bipolar 1 disorder, depressed with psychotic features in partial remission; schizoaffective disorder, bipolar type, depressed with psychotic features in partial remission; anxiety disorder, unspecified; impulse control disorder, unspecified; restless legs syndrome; hepatitis C positive; rest unchanged from admission. DISCHARGE MEDICATIONS: Please refer to the MRAD. DISCHARGE INSTRUCTIONS: Outpatient psychiatric and medical followup at the shelter. Time for discharge day management greater than 30 minutes. This addendum clarifies that this discharge medications since the patient was on 2 atypical antipsychotics at discharge, intramuscular Invega 234 mg every 21 days and Risperdal 0.5 mg at bedtime. Once the patient has been stable for 90 days, the Risperdal could be reduced down to 0.25 mg at bedtime for 30 days and then discontinued. Certainly, the final decision would be left to the patient's treating physician at that time. ROSSI GONZALEZ MD DR: TYRESE/lopez JOB#: [id number] / [id number]
--- NOTE | 2019-05-20 18:04 | PN ---
DATE: 05/18/2019 PSYCHIATRIC PROGRESS NOTE This late entry, 05/18/2019, covers elements not covered in my initial note. SUBJECTIVE: I met with the patient in the evening of 05/18/2019. The patient slept 7 hours previous night. He has been more interactive, spending time in the day room, had a telephone conversation with his on two occasions, continues to complain of restless legs syndrome and tremors. We will defer to Dr. Lainez. He did receive Tylenol with assistance. REVIEW OF SYSTEMS: Other than above, no CV, , pulmonary, eye, ENT system symptoms on review. MENTAL STATUS EXAM: Reasonably oriented. Speech is coherent, has some latency. Abstraction fair, computation impaired, language function intact, attention. Memory is reasonable. Mood and affect are improved, less labile. LABORATORY DATA: Reviewed. IMPRESSION: Unchanged from initial note. PLAN: No change from initial note with possible transition back to half-way on 05/19/2019. MAN Marta GONZALEZ MD DR: TYRESE/lopez JOB#: [id number] / [id number]
--- NOTE | 2019-05-27 18:58 | PN ---
DATE: 05/25/2019 PSYCHIATRIC PROGRESS NOTE This late entry 05/25/2019 covers elements not covered in my initial note. SUBJECTIVE: I met with the patient evening of 05/25/2019. The patient slept 7-1/4 hours previous night. He has been disorganized, somewhat anxious after breakfast, asking for his . Short-term memory is impaired. He seems to have difficulties knowing what to do with his medications at times, somewhat withdrawn, ruminative, paranoid. REVIEW OF SYSTEMS: No CV, , pulmonary, eye, ENT system symptoms on review. Reliability poor. MENTAL STATUS EXAM: Oriented to himself. Insight, judgment, recent and remote memory, attention, concentration, fund of knowledge poor, consistent with his diagnosis. Verbal responses have significant latency, often responses monosyllabic. LABORATORY DATA: Reviewed. IMPRESSION: Unchanged from initial note. PLAN: No change from initial note for now. We have added Seroquel, may need to increase this or change it to Risperdal if psychotic symptoms are more prominent. MAN Marta GONZALEZ MD DR: TYRESE/lopez JOB#: [id number] / [id number]
== END 2019-05-19 13:40 | DRG 885 ==
LOC: ER 10:43 → GEROPSY 13:07
PROVIDERS: ADMIT Psychiatry & Neurology Psychiatry; ATTEND Psychiatry & Neurology Psychiatry
DX: F25.0 Schizoaffective disorder, bipolar type (principal); E44.0 Moderate protein-calorie malnutrition; F15.10 Other stimulant abuse, uncomplicated; F17.210 Nicotine dependence, cigarettes, uncomplicated; F41.9 Anxiety disorder, unspecified; F63.9 Impulse disorder, unspecified; G25.81 Restless legs syndrome; R45.3 Demoralization and apathy; H91.90 Unspecified hearing loss, unspecified ear; F13.10 Sedative, hypnotic or anxiolytic abuse, uncomplicated; Z68.23 Body mass index [BMI] 23.0-23.9, adult; I10 Essential (primary) hypertension; J44.9 Chronic obstructive pulmonary disease, unspecified; K21.9 Gastro-esophageal reflux disease without esophagitis; Z02.89 Encounter for other administrative examinations; Z79.899 Other long term (current) drug therapy; Z81.8 Family history of other mental and behavioral disorders; F11.10 Opioid abuse, uncomplicated; Z82.49 Family history of ischemic heart disease and other diseases of the circulatory system; Z88.8 Allergy status to other drugs, medicaments and biological substances
CPT/HCPCS: 36415; 70450; 80053; 80061; 80178; 81001; 82140; 82306; 83036; 83540; 83550; 83735; 84436; 84443; 84480; 85025; 85610; 86592; 86705; 86709; 86803; 87340; 87521; 93005; 94640; 99407; J2426; J7512; J7620; 99285-25